=== PATIENT | female | born 1985 | race Hispanic/Latino ===

== ENCOUNTER → 2017-07-06 | Outpatient (CLI) | payer OTHER ==
--- NOTE | 2017-07-06 19:07 | Diagnostic Imaging Report ---
PROCEDURE: US OB SINGLE FETUS <14 WKS. TECHNIQUE: Multiple real-time grayscale images were obtained over the gravid uterus in various projections. INDICATION: Ultrasound for dating. FINDINGS: There is a single live intrauterine fetus. Bertsch-[place]-rump length of 5.37 cm, consistent with 12 weeks 1 day gestation. heartbeat is 183 beats per minute. No evidence of subchorionic hemorrhage. No adnexal masses are seen. Ovaries are not demonstrated due to considerable bowel gas. There is no free fluid demonstrated. IMPRESSION: A 12 weeks 1 day live intrauterine by ultrasound with sonographic EDC of 01/17/2018. Dictated by: Dictated on workstation # [id number]
== END ==
LOC: RAD 13:06
PROVIDERS: ATTEND Family Medicine
DX: Z36 Encounter for antenatal screening of mother (principal); Z3A.12 12 weeks gestation of pregnancy
CPT/HCPCS: 76801

== ENCOUNTER → 2017-10-29 | Outpatient (CLI) | payer SELFPAY | LOC: LAB 11:25 | PROVIDERS: ATTEND Family Medicine | DX: O99.810 Abnormal glucose complicating pregnancy (principal) | CPT/HCPCS: 36415; 82951; 82952 ==

== ENCOUNTER 2017-12-01 10:45 | Outpatient (RCR) | payer OTHER ==
--- NOTE | 2017-12-01 15:04 | Diagnostic Imaging Report ---
EXAMINATION: Biophysical profile. INDICATION: Diaphragmatic hernia. FINDINGS: The previous OB ultrasound exam of 09/15/2017 noted a single live fetus of approximately 22 weeks gestation +/- 1.5 weeks. There were no abnormalities identified, but there was a question of a diaphragmatic hernia. Reportedly, the patient has had follow-up ultrasound exams with a author agent elsewhere. On this exam, the fetus is again visualized. The fetus is cephalic in presentation and heart motion was noted with a rate of 123 bpm recorded. The biophysical profile score is 6/8 as breathing could not be identified. There is polyhydramnios with the amniotic fluid index estimated to be 37 (normal 8-22). IMPRESSION: 1. There is a single live fetus in cephalic presentation. 2. The biophysical profile score is below normal limits at 6/8 as breathing could not be identified. 3. There is marked polyhydramnios with amniotic fluid index of 37. 4. These results were called to Dr. Uzma Montano at the time of this dictation. CRITICAL FINDING Dictated by: Dictated on workstation # [id number]
[2017-12-08 12:30] VITALS: BP 129/60
--- NOTE | 2017-12-08 12:30 | Antepartum Progress Note ---
Antepartum Progress Antepartum Progress Date Seen by Provider: Dec 08, 2017 Time Seen by Provider: 12:10 Subjective: + Movement. Abdominal tightness. No leaking of fluid. Objective: Physical Exam General - alert and oriented, no apparent distress Abdomen - Soft, gravid, non-tender to palpation Ext - non-tender to palpation, no edema heart tones: 130, reactive NST Tocometer: irregular contractions Assessment: Gloria Samaniego is a 32 ,Gestational Age 34 2/7 wks by 12 wk US with EDC 01/17/18. complicated by history of c/s x2, abnormal quad screen with elevated risk of down's syndrome (1:59), abnormal one hour glucose tolerance test with 3 hour GTT WNL, left diaphragmatic hernia with low lung volumes (~15.5% as of 11/24/17) and herniation of stomach, spleen and intestines but liver down, dextroposition with levocardia and normal cardiac structure and function per echo, cutaneous outpouching at base of spine that does not involve neuro system, and significant polyhydramnios with MAYE as high as 71.42 ([facility], 12/05/17) currently 31 ([facility], 12/08/17). Patient being managed by Dr. Montano in conjunction with Center at [facility] in [place] with plan to deliver at [facility] by repeat C/S at 38-39 weeks due to need for extensive care after delivery. 11/24/17, [facility]: BPP 10/10 MAYE 53 S/D Ratio slightly elevated EFW 2033 grams, 65th %-tile Lung Biometry 15.54% 12/01/17, [facility] BPP 6/8 - no breathing noted MAYE 37 Vertex 12/02/17, [facility] BPP 6/10 MAYE 33 12/05/17, [facility] BPP 8/8 MAYE 71.42 Normal Cord Dopplers Normal MCA Doppler Breech Plan: BPP US today - no breathing observed, NST reactive and reassuring with good variability and accelerations and no decelerations. Category I tracing. Irregular contractions. Total BPP 8/10. Patient discharged to home, follow up with Dr. Montano next week, continue weekly testing. Vitals - Labs Labs Labs: A positive, antibody screen negative Rubella Immune HIV negative Hep B negative RPR NR Quad Screen: elevated (1:59) risk downs syndrome ROCK MARIE DO Dec 08, 2017 12:30
--- NOTE | 2017-12-08 12:33 | Diagnostic Imaging Report ---
INDICATION: Known diaphragmatic hernia. FINDINGS: Biophysical profile was performed. The overall biophysical profile score is 6/8 with 2 point deduction given for lack of breathing visualized. The fetus is cephalic. Amniotic fluid volume demonstrates MAYE of approximately 31 cm. heart motion was visualized by the technologist. IMPRESSION: Biophysical profile score 6/8. Dictated by: Dictated on workstation # [id number]
[2017-12-10] MEDS ORDERED: PREN-53 PO (16:52)
== END 2018-03-01 | disposition home or self-care (01) ==
LOC: RAD 10:45
PROVIDERS: ATTEND Family Medicine
DX: O35.8XX0 Maternal care for other (suspected) fetal abnormality and damage, not applicable or unspecified (principal); Z3A.35 35 weeks gestation of pregnancy
CPT/HCPCS: 76819

== ENCOUNTER → 2017-12-02 | Outpatient (CLI) | payer SELFPAY ==
--- NOTE | 2017-12-02 10:55 | Diagnostic Imaging Report ---
INDICATION: Diaphragmatic hernia. Comparison with 12/01/2017. FINDINGS: Single live intrauterine fetus is again demonstrated. There is polyhydramnios again noted. Amniotic fluid index is estimated to be 33. heart rate of 128 beats per minute. There is good tone and limb motion however no breathing was demonstrated. IMPRESSION: Abnormal biophysical profile again scoring 6 of potential 8 points by ultrasound. Critical finding Report was called to Diane/plain clothes police officer of Dr. Montano by [email or web address] at 10:55 am. Dictated by: Dictated on workstation # [id number]
[2017-12-02 12:00] VITALS: BP 116/66
== END ==
LOC: RAD 09:57
PROVIDERS: ATTEND Family Medicine
DX: O35.8XX1 Maternal care for other (suspected) fetal abnormality and damage, fetus 1 (principal); Z3A.00 Weeks of gestation of pregnancy not specified
CPT/HCPCS: 76819

== ENCOUNTER → 2017-12-04 | Outpatient (CLI) | payer SELFPAY ==
--- NOTE | 2017-12-04 10:06 | Diagnostic Imaging Report ---
PROCEDURE: US Gallbladder. TECHNIQUE: Multiple real-time grayscale images were obtained over the right upper quadrant in various projections. INDICATION: Right upper quadrant pain. The liver is normal in size at 16.4 cm. No discrete liver mass is identified. The gallbladder is without stones or sludge. No wall thickening or pericholecystic fluid is seen. There is no biliary duct dilatation. Extrahepatic bile duct is somewhat obscured. Pancreas is poorly visualized. There does appear to be hydronephrosis involving the right kidney. No calculi are seen. There is no ascites. IMPRESSION: 1. No evidence of cholelithiasis or acute cholecystitis. 2. Right-sided hydronephrosis. Dictated by: Dictated on workstation # [id number]
== END ==
LOC: RAD 09:32
PROVIDERS: ATTEND Family Medicine
DX: N13.30 Unspecified hydronephrosis (principal)
CPT/HCPCS: 76705

== ENCOUNTER 2017-12-10 16:24 | Outpatient (CLI) | payer SELFPAY ==
[~2017-12-10] VITALS: Ht 162.6 cm; Wt 88.5 kg
[2017-12-10 16:50] VITALS: BP 130/76
[2017-12-10] MEDS ORDERED: PREN-53 PO (16:52)
[2017-12-10 17:00] LABS: BILIRUBIN,URINE NEGATIVE (NEGATIVE); GLUCOSE, URINE (UA) NEGATIVE (NEGATIVE); KETONES,URINE NEGATIVE (NEGATIVE); LEUKOCYTE ESTERASE ,URINE 3+ (NEGATIVE); NITRITE,URINE NEGATIVE (NEGATIVE); PH,URINE 7 (5-9); PROTEIN,URINE NEGATIVE (NEGATIVE); UROBILINOGEN,URINE NORMAL (NORMAL)
[2017-12-10 17:01] LABS: BACTERIA,URINE TRACE /HPF; CLARITY,URINE CLEAR; COLOR,URINE YELLOW
[2017-12-10 17:21] VITALS: BP 121/82
[2017-12-10] MEDS ORDERED: MAGNESIUM 4 GM/100 ML IVPB 100 ML IV ONE (18:00)
[2017-12-10] MEDS ORDERED: D5 LR IV SOLUTION 1,000 ML IV SCH (18:00)
[2017-12-10] MEDS ORDERED: BETAMETHASONE ACE/NA PHOS 6 MG/ML (CELESTONE SOLUSPAN) ONE (18:00)
[2017-12-10] MEDS ORDERED: BETAMETHASONE ACE/NA PHOS 6 MG/ML (CELESTONE SOLUSPAN) IM SCH ×2 (18:00→18:05)
--- NOTE | 2017-12-10 18:03 | Clinic Account Progress/Dx ---
Clinic Account Progress/Dx DIAGNOSIS: Date Seen by Provider: Dec 10, 2017 Time Seen by Provider: 18:57 1. 32 yo at 34w4d 2. diaphragmatic hernia, polyhydramnios, mass at the base of the spine, abnormal quad screen for DS 3. Pre-term contractions 4. Previous c/s Progress Note: This is a 32yo at 34w4d w/ SARAY 01/17/[address] Montano's who present to L&D w/ c/o contractions. Pt reports contractions started last evening about 6pm and have continued since that time. Frequency has increased to every 3-4 min, contractions palpate mild-moderate. 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 Pt has had 1 previous VD and 2 prior c-sections. Pt denies any vaginal bleeding. She c/o of vaginal discharge - amniosure test was negative; she reports vaginal discharge was mucous-like and brown. Cervical exam 1cm/90%, presenting part not palpable. Contacted [facility] and spoke w/ Dr. James who accepted patient for transfer due to contractions in patient with multiple anomalies. Will give dose of Betamethasone and start Magnesium sulfate prior to transport. Will transport via fixed-wing ZULAY KEARNS DO Dec 10, 2017 18:03
[2017-12-10] MEDS ORDERED: LACTATED RINGERS 1,000 ML IV SCH (18:15)
[2017-12-10 18:20] VITALS: BP 123/82
[2017-12-10] MEDS ORDERED: MAGNESIUM SULFATE DRIP 500 ML IV SCH (18:30)
[2017-12-10 18:50] VITALS: BP 143/82
[2017-12-10] MEDS ORDERED: LACTATED RINGERS 500 ML IV SCH (23:46)
[2017-12-10] MEDS ORDERED: AMPICILLIN 2000 MG INJECTION (IM/IV) ONE (23:54)
[2017-12-10] MEDS ORDERED: NS (IVPB) 50 ML ONE (23:54)
[2017-12-11] MEDS ORDERED: NIFEdipine 10 MG CAPS (WOMEN'S SERVICES ONLY!!!) PO ONE
[2017-12-11] MEDS ORDERED: AMPICILLIN INJECTION 1,000 MG in NS (IVPB) 50 ML IV SCH ×2
[2017-12-11] MEDS ORDERED: AMPICILLIN INJECTION 2,000 MG in NS (IVPB) 50 ML IV ONE ×2
[2017-12-11] MEDS ORDERED: D5 LR IV SOLUTION 1,000 ML IV SCH
[2017-12-11] MEDS ORDERED: NIFEdipine 10 MG CAPS (WOMEN'S SERVICES ONLY!!!) PO SCH (04:00)
[2017-12-11] MEDS ORDERED: BETAMETHASONE ACE/NA PHOS 6 MG/ML (CELESTONE SOLUSPAN) IM SCH ×2 (09:00)
== END 2017-12-10 19:55 | disposition short-term general hospital (02) ==
LOC: WSo 16:24 → LDRP 16:27 → WSo 19:55
PROVIDERS: ATTEND Family Medicine
DX: O60.03 Preterm labor without delivery, third trimester (principal); O40.3XX0 Polyhydramnios, third trimester, not applicable or unspecified; O36.8930 Maternal care for other specified fetal problems, third trimester, not applicable or unspecified; O34.219 Maternal care for unspecified type scar from previous cesarean delivery; Z3A.34 34 weeks gestation of pregnancy
CPT/HCPCS: 81000; 87088

== ENCOUNTER → 2018-10-02 | Outpatient (CLI) | payer OTHER ==
[~2018-10-02] MED LIST: PREN-53 PO
--- NOTE | 2018-10-02 15:39 | Diagnostic Imaging Report ---
INDICATION: survey. TECHNIQUE: Multiple real-time grayscale images were obtained over the gravid uterus. COMPARISON: None. FINDINGS: There is a single living intrauterine in a transverse presentation. There is normal volume of amniotic fluid. Placenta is posterior. There is no previa. Heart rate is 156 beats per minute. The anatomical survey was unremarkable apart from limited visualization of the spine and kidneys. Maternal adnexa is unremarkable. The biometry correlates with gestational age of 26 weeks 1 day. IMPRESSION: 1. Single living intrauterine with sonographically estimated gestational age of 26 weeks 1 day and estimated date of confinement of January 07, 2019. 2. Somewhat limited evaluation of the spine and kidneys. Biometrical measurements are as follows: Biparietal 6.33 cm, age 25 weeks 5 days. Head circumference 24.08 cm, age 26 weeks 2 days. Abdominal circumference 21.70 cm, age 26 weeks 2 days. Femur length 4.77 cm, age 26 weeks 0 days. Sonographic estimate age: 26 weeks 1 days. Sonographic estimated date of delivery: 01/07/2018. Estimated Weight: 887 gm (+/- 130 gm). LMP percentile: 98%. heart rate: 156 beats per minute. number: 1 of 1. Dictated by: Dictated on workstation # [id number]
== END ==
LOC: RAD 12:54
PROVIDERS: ATTEND Family Medicine
DX: Z36.89 Encounter for other specified antenatal screening (principal); Z3A.26 26 weeks gestation of pregnancy; Z98.891 History of uterine scar from previous surgery
CPT/HCPCS: 76805

== ENCOUNTER 2018-12-31 09:05 | Outpatient (CLI) | payer OTHER ==
[~2018-12-31] VITALS: Ht 162.6 cm; Wt 85.8 kg
== END 2018-12-31 10:09 | disposition home or self-care (01) ==
LOC: PREOP 09:05
PROVIDERS: ATTEND Obstetrics & Gynecology
DX: Z01.818 Encounter for other preprocedural examination (principal)
CPT/HCPCS: 87081

== ENCOUNTER 2019-01-03 06:17 | Inpatient (IN) | payer OTHER ==
[~2019-01-03] VITALS: Ht 162.6 cm; Wt 85.7 kg
[~2019-01-03 06:17] MED LIST changes: +CITRIC ACID/SOB CIT (BICITRA) 30 ML UDC ONE; +DOCU-143 PO; +FAMOTIDINE 20MG/2ML IV (PEPCID) ONE; +FERR-84 PO; +METOCLOPRAMIDE INJ 10 MG/2 ML (REGLAN) ONE; +ceFAZolin 2 GM IV Premixed 50 ML ONE
[2019-01-03] MEDS ORDERED: LACTATED RINGERS 1,000 ML IV SCH (06:26)
[2019-01-03] MEDS ORDERED: METOCLOPRAMIDE INJ 10 MG/2 ML (REGLAN) IV ONE (06:30)
[2019-01-03] MEDS ORDERED: ceFAZolin 2 GM IV Premixed 50 ML IV ONE (06:30)
[2019-01-03] MEDS ORDERED: FAMOTIDINE 20MG/2ML IV (PEPCID) IV ONE (06:30)
[2019-01-03] MEDS ORDERED: CITRIC ACID/SOB CIT (BICITRA) 30 ML UDC PO ONE (06:30)
[2019-01-03] MEDS: LACTATED RINGERS 1,000 ML IV SCH ×2 (06:39→07:17)
[2019-01-03 06:46] LABS: BASOPHILS % (AUTO) 0 % (0-10); EOSINOPHILS # (AUTO) 0.1 10^3/uL (0.0-0.3); EOSINOPHILS % (AUTO) 1 % (0-10); HEMATOCRIT 36 % (35-52); HEMOGLOBIN 12.2 G/DL (11.5-16.0); LYMPHOCYTES # (AUTO) 1.9 X 10^3 (1.0-4.0); LYMPHOCYTES % (AUTO) 16 % (12-44); MEAN CORPUSCULAR HEMOGLOBIN 33 PG (25-34); MEAN CORPUSCULAR HGB CONC 34 G/DL (32-36); MEAN CORPUSCULAR VOLUME 99 FL (80-99); MEAN PLATELET VOLUME 11.1 FL (7.4-10.4); MONOCYTES # (AUTO) 0.5 X 10^3 (0.0-1.0); MONOCYTES % (AUTO) 4 % (0-12); NEUTROPHILS # (AUTO) 9.4 X 10^3 (1.8-7.8); NEUTROPHILS % (AUTO) 79 % (42-75); PLATELET COUNT 175 10^3/uL (130-400); RED CELL DISTRIBUTION WIDTH 15.4 % (10.0-14.5)
[2019-01-03] MEDS ORDERED: fentaNYL INJECTION 100 MCG/2 ML AMP ONE (06:46)
[2019-01-03 06:59] VITALS: BP 111/70
--- NOTE | 2019-01-03 07:15 | NUR ---
THIS RN ASSUMES CARE FROM CONE FORMER RN. REPORT RECEIVED FROM FREDDY RN. THIS RN INTRODUCES SELF TO PT AND FAMILY. SLOT TAG INSERTER WALKS PT BACK TO OR FOR REPEAT CS BY DR ACE.
--- NOTE | 2019-01-03 07:16 | History & Physical-OB ---
OB - Chief Complaint & HPI Date/Time Date of Admission: Date of Admission: Jan 03, 2019 at 06:17 Date seen by a Provider: Jan 03, 2019 Time Seen by a Provider: 07:10 Chief Complaint/History OB-Reason for Admission/Chief: Section Hx : 6 Hx Para: 4 Expected Date of Delivery: Jan 10, 2019 Indication for : desires repeat Admission Nurse Assessment Rev: Yes History of Labs Apos Antibody neg Rubella unk RPR NR HIV NR HBsAg NR Allergies and Home Medications Allergies Coded Allergies: No Known Drug Allergies (Unverified , 12/10/17) Home Medications Docusate Sodium 100 Mg Capsule, 100 MG PO DAILY, (Reported) Ferrous Sulfate 325 Mg Tablet, 325 MG PO DAILY, (Reported) Uck156/Iron Fumarate/FA/Dss 1 Each Tablet, 1 EACH PO DAILY, (Reported) Patient Home Medication List Home Medication List Reviewed: Yes OB - History Hx of Present Care: Yes Ultrasounds: Normal mid trimester US Obstetrical Complications: None Medical Complications: None Delivery History Adverse Rxn to Tranfusion: No (HAS HAD BLOOD WITH NO REACTION) Patient Past Medical History n/a Social History/Family History HIV/AIDS: No Sexually Transmitted Disease: No Alcohol Use: Denies Use Recreational Drug Use: No Immunizations Date of Influenza Vaccine: Aug 20, 2018 OB - Admission Exam Physical Exam Vitals: Vital Signs 01/03/19 06:59 Temp 98.8 Pulse 103 Resp 18 B/P (MAP) 111/70 (84) HEENT: NCAT Heart: Rhythm Normal Lungs: Clear Abdomen: Gravid Extremities: Normal Reflexes: Normal Heart Rate: 130's Decelerations: No Decelerations Short Term Variability: Present Assisted Variability: Average (6-25) Contractions on Admission: >10 Minutes Apart Labs Laboratory Tests Test 01/03/19 06:25 Range/Units White Blood Count 12.0 H 4.3-11.0 10^3/uL Red Blood Count 3.65 L 4.35-5.85 10^6/uL Hemoglobin 12.2 11.5-16.0 G/DL Hematocrit 36 35-52 % Mean Corpuscular Volume 99 80-99 FL Mean Corpuscular Hemoglobin 33 25-34 PG Mean Corpuscular Hemoglobin Concent 34 32-36 G/DL Red Cell Distribution Width 15.4 H 10.0-14.5 % Platelet Count 175 130-400 10^3/uL Mean Platelet Volume 11.1 H 7.4-10.4 FL Neutrophils (%) (Auto) 79 H 42-75 % Lymphocytes (%) (Auto) 16 12-44 % Monocytes (%) (Auto) 4 0-12 % Eosinophils (%) (Auto) 1 0-10 % Basophils (%) (Auto) 0 0-10 % Neutrophils # (Auto) 9.4 H 1.8-7.8 X 10^3 Lymphocytes # (Auto) 1.9 1.0-4.0 X 10^3 Monocytes # (Auto) 0.5 0.0-1.0 X 10^3 Eosinophils # (Auto) 0.1 0.0-0.3 10^3/uL Basophils # (Auto) 0.0 0.0-0.1 10^3/uL OB - Assessment/Plan/Diagnosis Assessment Assessment: section Admission Dx 33 yo @ 39 weeks Previous x 3 AMA Admission Status: Inpatient Order (span 2 midnights) Reason for Inpatient Admission: Repeat at term Plan Plan: Section GLENN ACE DO Jan 03, 2019 07:16
[2019-01-03] MEDS ORDERED: OXYTOCIN/NORMAL SALINE 500 ML IV SCH (07:18)
--- NOTE | 2019-01-03 07:22 | Discharge Inst-Women's Service ---
Discharge Inst-Women's Serv Depart Medication/Instructions New, Converted or Re-Newed RX: RX on Chart Final Diagnosis POD 2 RLTCS Consults/Follow Up Additional Follow Up: Yes Orders/Referrals Dr. Franco in 7-10 days, Dr. Montano in 6 weeks Activity Activity: Activity as Tolerated Driving Instructions: No Driving for 1 Week NO SMOKING: NO SMOKING Nothing Inside Vagina: No Douching, No [place], No Tampons Diet Discharge Diet: No Restrictions Symptoms to Report to : Bleeding Excessive, Pain Increased, Fever Over 101 Degrees F, Vaginal Bleeding Increase, Questions/Concerns For Any Problems or Questions: Contact Your Physician Skin/Wound Care Infection Signs and Symptoms: Increased Redness, Foul Odor of Wound, Increased Drainage, Skin Itchy or Has a Rash, Increased Swelling, Temperature Above 101 F Operative Area Clean and Dry: Keep Incision Clean/Dry Stitches/[place]/Dermabond: Dermabond, Care of Stitches Bathing Instructions: GLENN Hagen DO Jan 03, 2019 07:22
[2019-01-03] MEDS ORDERED: DOCU100C37 PO (07:24)
[2019-01-03] MEDS ORDERED: ACHD5005 PO (07:24)
[2019-01-03] MEDS ORDERED: IBUP-844 PO (07:24)
[2019-01-03] MEDS ORDERED: ONDANSETRON 4 MG/2 ML (SDV) Z0FRAN IVP PRN ×2 (07:30→09:30)
[2019-01-03] MEDS ORDERED: MEASLES,MUMPS,RUBELLA 1 EA INJ SC SCH (07:30)
[2019-01-03] MEDS ORDERED: TETANUS,DIPTH,PERTUSS P/F (BOOSTRIX) 0.5 ML VIAL IM SCH (07:30)
[2019-01-03] MEDS ORDERED: HYDROmorphone 2 MG/ML VIAL (DILAUDID) IV PRN (07:30)
[2019-01-03] MEDS ORDERED: OXYTOCIN/NORMAL SALINE 500 ML IV ONE (07:36)
[2019-01-03] MEDS ORDERED: LIDOCAINE PF 2% 5 ML (XYLOCAINE) VIAL ONE (07:36)
[2019-01-03] MEDS ORDERED: DEXAMETHASONE 10 MG/ML (DECADRON) 1 ML VIAL ONE (07:36)
[2019-01-03] MEDS ORDERED: KETOROLAC 30 MG/ML VIAL ONE (07:36)
[2019-01-03] MEDS ORDERED: ONDANSETRON 4 MG/2 ML (SDV) Z0FRAN ONE (07:36)
[2019-01-03] MEDS ORDERED: BUPIVACAINE SPINAL 0.75% (SENSORCAINE) 2 ML AMP ONE (08:01)
[2019-01-03] MEDS ORDERED: ROPIVACAINE 5MG/ML 30ML VIAL ONE (08:17)
[2019-01-03] MEDS: KETOROLAC 30 MG/ML VIAL IVP SCH ×3 (08:17→20:21)
--- NOTE | 2019-01-03 09:06 | OPERATIVE REPORT ---
DATE OF SERVICE: PREOPERATIVE DIAGNOSES: 1. A 33-year-old G6, P4 at 39 weeks gestation. 2. Previous x3. 3. Advanced maternal age. POSTOPERATIVE DIAGNOSES: 1. A 33-year-old G6, P4 at 39 weeks gestation. 2. Previous x3. 3. Advanced maternal age. PROCEDURE: Repeat low transverse section. SURGEON: GLENN ACE DO ANESTHESIA: Spinal. ESTIMATED BLOOD LOSS: 400 mL. URINE OUTPUT: 150 mL clear at the end of the procedure. FLUIDS: 1000 mL lactated Ringer solution. FINDINGS: A live female infant weighing 8 pounds 15 ounces, Apgars of 8 and 9. Grossly normal appearing uterus, bilateral fallopian tubes and ovaries. INDICATIONS FOR PROCEDURE: This 33-year-old female was a consultation to me from [facility] and Dr. Montano for repeat . She started care with [facility] and had no complications of care outside of advanced maternal age. In a preoperative consultation we discussed proceeding with repeat . She was well aware of the risks that she had had four prior cesareans in the past. Once again on the consent risks were reviewed including risk of bleeding, infection, damage to surrounding structures including, but not limited to bowel, bladder, ureter, kidneys, possible postoperative complications, recovery timeframe, possible need for blood transfusion. After everything was discussed with the patient in detail, consent was obtained in the preoperative area and the patient taken to the operating room. OPERATIVE REPORT IN DETAIL: Once in the operating room spinal anesthesia was found to be adequate, placed in supine position with leftward tilt, prepped and draped in normal sterile fashion. A timeout was performed and anesthesia was tested. I then make a Pfannenstiel skin incision through the previously existing scar by making an elliptical incision around the previously existing keloid. Once this was done I am able to excise the old keloid scar. I then took my incision down to the underlying fascia using Bovie cautery. Fascial incision extended laterally using Bovie cautery. Superior aspect of the fascial incision was then grasped with Easton clamps, tented up and dissected off the underlying rectus muscle. Inferior aspect of the fascial incision was then grasped with Easton clamps, tented up and dissected off the underlying rectus muscles. The rectus muscle was then dissected down the midline using Bennett scissors, which exposed the peritoneum, which entered bluntly and extended using blunt traction. I then placed an Paul ring retractor in peritoneal incision, which offered excellent lateral femoral retraction. I then identified the lower uterine segment, which was found to be thinned out. I made a low transverse incision through the lower uterine segment using the scalpel and membranes were immediately encountered. Clear fluid was noted. I extended the uterine incision laterally and superiorly using bandage scissors. The was found in the vertex presentation, occiput posterior. With gentle fundal pressure, 's head elevated up to the incision where it was delivered through the incision, the nares and oropharynx were bulb suctioned. Anterior and posterior shoulder was delivered. Infant was then brought out to the operative field. The cord was clamped and cut and infant was handed off to Dr. Montano who was present for delivery. Cord blood collected, 3-vessel cord was intact. Placenta then was delivered spontaneously thereafter. IV Pitocin was initiated to facilitate uterine contraction. Uterine fundus became firmer with bimanual massage. Uterus was then exteriorized and cleared of all endometrial clots and debris. I then proceeded with closing the uterine incision using 0 Vicryl suture in a running locked fashion. Second layer of imbricating 0 Monocryl was placed. Excellent hemostasis was noted after doing this. I placed the uterus back in the pelvis and copiously irrigated the pelvis using normal saline. After this, there was no active bleeding noted from any of my dissection planes. I placed Interceed antiadhesive over my low transverse incision and proceeded with closing the peritoneum using 3-0 Vicryl suture in a running fashion. The rectus muscle was reapproximated using 3-0 Vicryl suture in interrupted fashion. The fascia was reapproximated using 0 Vicryl suture in running fashion. Subcutaneous tissue was reapproximated using 3-0 plain interrupted subcutaneous stitch and skin reapproximated using 4-0 Monocryl running subcuticular. Dermabond was applied to incision and sterile dressing with adhesive white tape. The patient tolerated the procedure well and was taken to recovery area in stable condition. Lap and sponge counts were correct at the end of the procedure. Instrument count was correct as well. Two grams of Ancef were given preoperatively for infection prophylaxis. Job ID: [id number] DocumentID: [id number] Dictated Date: 01/03/2019 08:16:46 Licensed Practical Vocational Nurse Date: 01/03/2019 09:05:35 Dictated By: GLENN ACE DO
[2019-01-03] MEDS ORDERED: NALOXONE 0.4 MG/ML 1 ML (NARCAN) VIAL IV PRN ×2 (09:30)
[2019-01-03] MEDS ORDERED: METOCLOPRAMIDE INJ 10 MG/2 ML (REGLAN) IV PRN (09:30)
[2019-01-03] MEDS ORDERED: morphine INJ 10 MG/ML 1ML (SYR OR VIAL) IVP ONE (09:30)
[2019-01-03] MEDS ORDERED: ONDANSETRON 4 MG/2 ML (SDV) Z0FRAN IV PRN (09:30)
[2019-01-03] MEDS ORDERED: MEPERIDINE (DEMEROL) INJ 50 MG/ML IVP ONE (09:30)
[2019-01-03] MEDS ORDERED: diphenhydrAMINE 50 MG/ML INJ (BENADRYL) IV PRN (09:30)
--- NOTE | 2019-01-03 09:45 | NUR ---
PT OUT OF RECOVERY AND ARRIVES TO PP ROOM 307 ON BED/CART BY THIS RN. FAMILY AT BEDSIDE. PT DENIES PAIN OR NEEDS AT THIS TIME. FUNDUS FIRM, MIDLINE, 2 BELOW UMBILICUS, LIGHT BLEEDING. CALL LIGHT WITHIN REACH.
[2019-01-03 10:15] VITALS: BP 124/74
--- NOTE | 2019-01-03 11:05 | NUR ---
THIS RN AT BEDSIDE. FUNDUS FIRM, MIDLINE, 2 BELOW UMBILICUS, LIGHT BLEEDING, SMALL DIME SIZED CLOT EXPELLED. PAD AND LINEN CHANGE, PERICARE BY THIS RN. ABDOMINAL BINDER APPLIED AT THIS TIME. PT CO PAIN 01/20. DENIES NEED FOR PAIN MEDICINE AT THIS TIME. PT AWARE TO NOTIFY RN WITH CALL LIGHT WHEN WANTING PAIN MEDICINE. CALL LIGHT BY PT SIDE WITHIN REACH. FAMILY AT BEDSIDE. DENIES NEEDS.
[2019-01-03 12:00] VITALS: BP 108/67
[2019-01-03] MEDS: HYDROcodone/APAP 5 MG/325 MG (LORTAB) TAB PO PRN ×2 (12:37→17:33)
[2019-01-03] MEDS ORDERED: CATHETER FLUSH 10 ML SYR IV SCH (14:00)
--- NOTE | 2019-01-03 14:45 | NUR ---
PERICARE AND LINEN CHANGE BY THIS RN. PT NEEDS TO VOID. PT UNABLE TO LIFT LEFT LEG YET. STATE LEFT LEG STILL FEEL NUMB. THIS RN HELPS PT USE A BEDPAN. DISCUSS PLAN OF CARE WITH PT AND FAMILY. QUESTIONS ANSWERED. CALL LIGHT WITHIN REACH. FAMILY REMAINS AT BEDSIDE.
[2019-01-03 16:00] VITALS: BP 108/67
--- NOTE | 2019-01-03 16:15 | NUR ---
THIS RN AT BEDSIDE FOR VS AND EVALUATION OF LEFT LEG. PT STILL UNABLE TO FULLY LIFT LEFT LEG AFTER CS THIS AM. THIS RN WILL CALL ANESTHESIA PROVIDER BASEBALL WINDER TO REPORT CONCERN.
--- NOTE | 2019-01-03 16:40 | NUR ---
THIS RN CALLS ELYSSA BENITO BOX OFFICE CLERK FOR ANESTHESIA. NO ANSER. VOICEMAIL LEFT TO RETURN CALL.
--- NOTE | 2019-01-03 16:52 | NUR ---
THIS RN AT BEDSIDE TO REEVALUATE PT LEFT LEG. PT NOW ABLE TO BEND AND LIFT LEFT LEG OFF OF BED AT THIS TIME.
--- NOTE | 2019-01-03 17:20 | NUR ---
THIS RN AT BEDSIDE. THIS RN ASSISTS PT UP TO BATHROOM. PT CO LEFT HIP PAIN. PT HAS HAD SURGERY ON LEFT HIP IN THE PAST. RN WILL ADMIN PAIN MEDICINE IN ATTEMPT TO RELIEVE PAIN.
[2019-01-03] MEDS: DOCUSATE SODIUM 100 MG (COLACE) CAP PO SCH (20:20)
[2019-01-03 20:21] VITALS: BP 101/66
[2019-01-04 00:50] VITALS: BP 108/47
[2019-01-04] MEDS ORDERED: IBUPROFEN 600 MG (MOTRIN) TAB PO ONE (03:21)
[2019-01-04] MEDS: IBUPROFEN 600 MG (MOTRIN) TAB PO SCH ×4 (03:27→22:19)
[2019-01-04 03:30] VITALS: BP 105/98
--- NOTE | 2019-01-04 03:30 | NUR ---
This rn in room to take vs. Automatic vital machine having difficulty reading bp. Repeated 3x with reading on 4th time. Pulse reading 40. Palpated radial pulse to confirm higher than 40. Pulse 68 and confirmed with sp02 probe. Will return to room with stethascope.
[2019-01-04] MEDS: HYDROcodone/APAP 5 MG/325 MG (LORTAB) TAB PO PRN ×2 (03:37→12:40)
--- NOTE | 2019-01-04 04:00 | NUR ---
Heart murmur detected on auscultation at apical pulse. Heart rate regular. Pt denies needs at this time. will monitor closely.
[2019-01-04 07:11] LABS: BASOPHILS % (AUTO) 0 % (0-10); EOSINOPHILS % (AUTO) 0 % (0-10); HEMATOCRIT 31 % (35-52); HEMOGLOBIN 10.3 G/DL (11.5-16.0); LYMPHOCYTES # (AUTO) 2.4 X 10^3 (1.0-4.0); LYMPHOCYTES % (AUTO) 17 % (12-44); MEAN CORPUSCULAR HEMOGLOBIN 33 PG (25-34); MEAN CORPUSCULAR HGB CONC 33 G/DL (32-36); MEAN CORPUSCULAR VOLUME 99 FL (80-99); MONOCYTES % (AUTO) 7 % (0-12); NEUTROPHILS # (AUTO) 10.5 X 10^3 (1.8-7.8); NEUTROPHILS % (AUTO) 76 % (42-75); PLATELET COUNT 163 10^3/uL (130-400); RED CELL DISTRIBUTION WIDTH 14.9 % (10.0-14.5); WHITE BLOOD COUNT 13.9 10^3/uL (4.3-11.0)
[2019-01-04 07:20] VITALS: BP 100/69
--- NOTE | 2019-01-04 07:20 | NUR ---
Report of cardiac findings reported to Dr. Franco. No new orders received. Report given to Navya HUMPHREY.
--- NOTE | 2019-01-04 08:15 | NUR ---
Dr. Franco here to see pt, no new orders rec'd.
--- NOTE | 2019-01-04 08:39 | Anesthesia-Regional Post-Op ---
Regional Patient Condition Mental Status: Alert, Oriented x3 Circulation: Same as Pre-Op Headache: Absent Sensation: Full Recovery Motor Block: Absent Post Op Complications Complications None Follow Up Care/Instructions Patient Instructions None needed. Anesthesia/Patient Condition Patient is doing well, no complaints, stable vital signs, no apparent adverse anesthesia problems. No complications reported per nursing. YENNY MÉNDEZ CRNA Jan 04, 2019 08:39
--- NOTE | 2019-01-04 09:05 | Postpartum Progress Note ---
Note Note Day # 1 Subjective: Patient is without complaints. Ambulating, voiding. Tolerating a regular diet without nausea or vomiting. Normal lochia. Pain is well controlled with oral pain medications. Objective: Vital Sign - Last 24 Hours 01/03/19 01/03/19 01/03/19 01/03/19 10:15 11:13 12:00 16:00 Temp 98.2 98.3 97.5 Pulse 84 83 78 Resp 18 18 18 B/P (MAP) 124/74 (91) 108/67 (81) 108/67 (81) Pulse Ox 99 97 97 O2 Delivery Room Air Room Air Room Air Room Air 01/03/19 01/04/19 01/04/19 01/04/19 20:21 00:50 03:30 04:47 Temp 97.6 98.9 98.9 Pulse 64 89 68 Resp 18 18 18 B/P (MAP) 101/66 (78) 108/47 (67) 105/98 (100) Pulse Ox 98 98 O2 Delivery Room Air Room Air Room Air Room Air Intake and Output 01/03/19 01/03/19 01/04/19 15:00 23:00 07:00 Intake Total 1450 ml 1400 ml Output Total 900 ml 1400 ml Balance 550 ml 0 ml Physical Exam: General - Alert and oriented, no apparent distress Abdomen - Soft, appropriately tender to palpation, non-distended, fundus firm at umbilicus Extremities - no edema, negative Spring's bilaterally Incision- mild ecchymoses around incision, c/d/i Assessment: POD 1 RLTCS Acute blood loss anemia Plan: Routine care. Encourage breast feeding. Encourage ambulation. Ferrous sulfate supplementation. Plan for discharge tomorrow Vitals - Labs Vital Signs - I&O Vital Signs Date Time Temp Pulse Resp B/P (MAP) Pulse Ox O2 Delivery O2 Flow Rate FiO2 01/04/19 04:47 Room Air 01/04/19 03:30 98.9 68 18 105/98 (100) 98 Room Air 01/04/19 00:50 98.9 89 18 108/47 (67) 98 Room Air 01/03/19 20:21 97.6 64 18 101/66 (78) Room Air 01/03/19 16:00 97.5 78 18 108/67 (81) 97 Room Air 01/03/19 12:00 98.3 83 18 108/67 (81) 97 Room Air 01/03/19 11:13 Room Air 01/03/19 10:15 98.2 84 18 124/74 (91) 99 Room Air I & O 01/04/19 07:00 Intake Total 2850 ml Output Total 2300 ml Balance 550 ml Labs Laboratory Tests 01/04/19 07:00: White Blood Count 13.9H, Red Blood Count 3.11L, Hemoglobin 10.3L, Hematocrit 31L , Mean Corpuscular Volume 99, Mean Corpuscular Hemoglobin 33, Mean Corpuscular Hemoglobin Concent 33, Red Cell Distribution Width 14.9H, Platelet Count 163, Mean Platelet Volume 11.0H, Neutrophils (%) (Auto) 76H, Lymphocytes (%) (Auto) 17, Monocytes (%) (Auto) 7, Eosinophils (%) (Auto) 0, Basophils (%) (Auto) 0, Neutrophils # (Auto) 10.5H, Lymphocytes # (Auto) 2.4, Monocytes # (Auto) 1.0, Eosinophils # (Auto) 0.0, Basophils # (Auto) 0.0 GLENN ACE DO Jan 04, 2019 9:05 am
[2019-01-04] MEDS: DOCUSATE SODIUM 100 MG (COLACE) CAP PO SCH ×2 (09:17→20:38)
--- NOTE | 2019-01-04 12:30 | NUR ---
Pt reports incision bleeding. Incision inspected, small amt bright red blood noted on L side of incision, no current active bleeding. Suspect abd. binder rubbed as it is too high on abd. Incision covered with ABD pad and abd binder adjusted. Pt educated on binder placement. Will continue to monitor.
[2019-01-04 12:41] VITALS: BP 97/60
--- NOTE | 2019-01-04 14:20 | NUR ---
Incision checked. Very scant amount of bright red blood noted on ABD pad, no active bleeding noted. Will continue to monitor.
[2019-01-04 16:00] VITALS: BP 105/68
--- NOTE | 2019-01-04 16:10 | NUR ---
Motrin given. Shower set up for pt, fresh gown and myrna supplies provided.
--- NOTE | 2019-01-04 21:00 | NUR ---
pt resting in bed. assessment completed. family at bedside. no concerns voiced at this time.
[2019-01-04 21:58] VITALS: BP 122/70
[2019-01-05] MEDS: IBUPROFEN 600 MG (MOTRIN) TAB PO SCH ×2 (04:16→09:26)
[2019-01-05 04:17] VITALS: BP 99/64
--- NOTE | 2019-01-05 07:14 | Postpartum Progress Note ---
Note Note Day # 2 Subjective: Patient is without complaints. Ambulating, voiding. Tolerating a regular diet without nausea or vomiting. Normal lochia. Pain is well controlled with oral pain medications. Objective: Vital Sign - Last 24 Hours 01/04/19 01/04/19 01/04/19 01/04/19 07:20 12:41 16:00 21:58 Temp 98.1 98.8 98.7 97.3 Pulse 69 70 70 72 Resp 18 18 18 18 B/P (MAP) 100/69 (79) 97/60 (72) 105/68 (80) 122/70 (87) Pulse Ox 96 98 98 98 O2 Delivery Room Air Room Air Room Air Room Air 01/05/19 04:17 Temp 97.4 Pulse 84 Resp 18 B/P (MAP) 99/64 (76) Pulse Ox 98 O2 Delivery Room Air Physical Exam: General - Alert and oriented, no apparent distress Abdomen - Soft, appropriately tender to palpation, non-distended, fundus firm at umbilicus Extremities - no edema, negative Spring's bilaterally Incision: c/d/i Assessment: POD 2 RLTCS Acute blood loss anemia Plan: Routine care. Encourage breast feeding. Encourage ambulation. Ferrous sulfate supplementation. Plan for discharge today Vitals - Labs Vital Signs - I&O Vital Signs Date Time Temp Pulse Resp B/P (MAP) Pulse Ox O2 Delivery O2 Flow Rate FiO2 01/05/19 04:17 97.4 84 18 99/64 (76) 98 Room Air 01/04/19 21:58 97.3 72 18 122/70 (87) 98 Room Air 01/04/19 16:00 98.7 70 18 105/68 (80) 98 Room Air 01/04/19 12:41 98.8 70 18 97/60 (72) 98 Room Air 01/04/19 07:20 98.1 69 18 100/69 (79) 96 Room Air GLENN ACE DO Jan 05, 2019 07:14
[2019-01-05 09:24] VITALS: BP 105/58
--- NOTE | 2019-01-05 09:24 | NUR ---
AM shift assessment completed and vital signs obtained, see interventions. Family in room interpreting. Plan of care reviewed with patient. Patient verbalizes understanding and questions answered. Scheduled Colace and Motrin PO given. Lortab 2 PO given for patient's c/o pain. TDAP administered, see EMAR. VIS sheet provided to patient.
[2019-01-05] MEDS: DOCUSATE SODIUM 100 MG (COLACE) CAP PO SCH (09:26)
[2019-01-05] MEDS: HYDROcodone/APAP 5 MG/325 MG (LORTAB) TAB PO PRN (09:26)
--- NOTE | 2019-01-05 13:27 | NUR ---
Discharge instructions reviewed with patient both written and verbally utilizing telephone cash applications associate. Patient verbalizes understanding and questions answered. Written prescriptions given to patient.
--- NOTE | 2019-01-05 14:13 | NUR ---
Patient discharged at this time via wheelchair and accompanied down to awaiting private vehicle by this RN. No signs or symptoms of distress noted.
== END 2019-01-05 14:13 | disposition home or self-care (01) | DRG 787 ==
LOC: LDRP 06:17
PROVIDERS: ADMIT Obstetrics & Gynecology; ATTEND Obstetrics & Gynecology
PROC: 10D00Z1 Extraction of Products of Conception, Low, Open Approach (ICD-10-PCS; principal; 2019-01-03 07:17)
DX: O34.211 Maternal care for low transverse scar from previous cesarean delivery (principal); O90.81 Anemia of the puerperium; D62 Acute posthemorrhagic anemia; Z3A.39 39 weeks gestation of pregnancy; Z37.0 Single live birth
CPT/HCPCS: 36415; 85025; 86850; 86900; 86901; 90715; 94664

== ENCOUNTER 2020-01-20 22:51 | Emergency (ER) | payer OTHER ==
[~2020-01-20] VITALS: Ht 167 cm; Wt 81.0 kg
[~2020-01-20 22:51] MED LIST changes: +ACHD5005 PO; -CITRIC ACID/SOB CIT (BICITRA) 30 ML UDC ONE; +DOCU100C37 PO; -FAMOTIDINE 20MG/2ML IV (PEPCID) ONE; +IBUP-844 PO; -METOCLOPRAMIDE INJ 10 MG/2 ML (REGLAN) ONE; -ceFAZolin 2 GM IV Premixed 50 ML ONE
[2020-01-20] MEDS ORDERED: KETOROLAC 30 MG/ML VIAL IVP ONE (23:45)
[2020-01-20] MEDS ORDERED: ORPHENADRINE 60 MG/2 ML (NORFLEX) AMP IV ONE (23:45)
[2020-01-20 23:54] LABS: BASOPHILS % (AUTO) 1 % (0-10); EOSINOPHILS # (AUTO) 0.1 10^3/uL (0.0-0.3); EOSINOPHILS % (AUTO) 1 % (0-10); HEMATOCRIT 34 % (35-52); HEMOGLOBIN 11.4 G/DL (11.5-16.0); LYMPHOCYTES # (AUTO) 2.7 X 10^3 (1.0-4.0); LYMPHOCYTES % (AUTO) 31 % (12-44); MEAN CORPUSCULAR HEMOGLOBIN 32 PG (25-34); MEAN CORPUSCULAR HGB CONC 34 G/DL (32-36); MEAN CORPUSCULAR VOLUME 94 FL (80-99); MEAN PLATELET VOLUME 10.3 FL (7.4-10.4); MONOCYTES # (AUTO) 0.5 X 10^3 (0.0-1.0); MONOCYTES % (AUTO) 5 % (0-12); NEUTROPHILS # (AUTO) 5.2 X 10^3 (1.8-7.8); NEUTROPHILS % (AUTO) 61 % (42-75); PLATELET COUNT 166 10^3/uL (130-400); RED CELL DISTRIBUTION WIDTH 13.9 % (10.0-14.5); WHITE BLOOD COUNT 8.5 10^3/uL (4.3-11.0)
[2020-01-21 00:17] LABS: ALANINE AMINOTRANSFERASE 20 U/L (0-55); ALBUMIN 4.4 GM/DL (3.2-4.5); ALKALINE PHOSPHATASE 62 U/L (40-136); BILIRUBIN,TOTAL 0.4 MG/DL (0.1-1.0); BUN/CREATININE RATIO 30; CALCIUM 9.2 MG/DL (8.5-10.1); CARBON DIOXIDE 22 MMOL/L (21-32); CHLORIDE 108 MMOL/L (98-107); CREATININE SERUM 0.69 MG/DL (0.60-1.30); GFR ESTIMATED > 60; GLUCOSE 141 MG/DL (70-105); POTASSIUM 3.8 MMOL/L (3.6-5.0); SODIUM 140 MMOL/L (135-145); TOTAL PROTEIN 7.4 GM/DL (6.4-8.2)
[2020-01-21 00:37] LABS: TSH (THYROID ANALYZER) 1.04 UIU/ML (0.35-4.94)
[2020-01-21] MEDS ORDERED: PEN G BENZ (BICILLIN LA) 1.2 M UN/2 ML SYR IM ONE (01:45)
[2020-01-21] MEDS ORDERED: TERB250T16 PO (01:48)
[2020-01-21] MEDS ORDERED: CYCL10TA9 PO (01:48)
--- NOTE | 2020-01-21 01:49 | ED Headache ---
General Chief Complaint: Head/Cervical Problems Stated Complaint: HEADACHE Nursing Triage Note: Pt ambulates to RM 6 with c/o headache x 1 wk that started at top of head and now to base of skull. Pt daughter at bedside translating for pt and states se also has quarter sized spots that have balded on right side behind ear and back of head. Pt describes headache as "pressure and feels like someone punched my head" Nursing Sepsis Screen: No Definite Risk Source: patient, family, aix system administrator Exam Limitations: no limitations, language barrier History of Present Illness Date Seen by Provider: Jan 20, 2020 Time Seen by Provider: 23:17 Initial Comments This 34-year-old [place]-speaking woman presents to the emergency room via private vehicle accompanied by her bilingual daughter with complaints of intense headache and neck pain escalating over the past week as well as patches of alopecia that have developed recently. She has been taking Tylenol and ibuprofen without sufficient relief. She notes working at [employer] where she wears a helmet or hardhat during the workday. She reports her left eye feels like it's "jumping". She is afebrile. She denies any other neurologic symptoms, nausea, vomiting, or vision changes. Last menstrual period was one year ago because she is breast-feeding. Patient has 3 main patches of alopecia. She denies any picking or pulling of the hair. Allergies and Home Medications Allergies Coded Allergies: No Known Drug Allergies (Unverified , 12/10/17) Home Medications Cyclobenzaprine HCl 10 Mg Tablet, 10 MG PO Q8H PRN for SPASMS Prescribed by: MARK BELLE on 01/21/20 0148 Docusate Sodium 100 Mg Capsule, 100 MG PO BID PRN for CONSTIPATION-1ST LINE Prescribed by: GLENN ACE on 01/03/19723 Ferrous Sulfate 325 Mg Tablet, 325 MG PO DAILY, (Reported) Hydrocodone Bit/Acetaminophen 1 Tab Tab, 1-2 TAB PO Q4H PRN for PAIN-MODERATE Prescribed by: GLENN ACE on 01/03/19723 Ibuprofen 600 Mg Tablet, 600 MG PO Q6H Prescribed by: GLENN ACE on 01/03/19723 Epr533/Iron Fumarate/FA/Dss 1 Each Tablet, 1 EACH PO DAILY, (Reported) Terbinafine HCl 250 Mg Tablet, 250 MG PO DAILY Prescribed by: MARK BELLE on 01/21/20 0148 Patient Home Medication List Home Medication List Reviewed: Yes Review of Systems Review of Systems Constitutional: no symptoms reported Eyes: See HPI Ears, Nose, Mouth, Throat: no symptoms reported Respiratory: no symptoms reported Cardiovascular: no symptoms reported Gastrointestinal: no symptoms reported Genitourinary: no symptoms reported : No Musculoskeletal: see HPI Skin: see HPI Psychiatric/Neurological: See HPI Past Pvczysi-Idikra-Ldnxjy Hx Past Med/Social Hx: Reviewed Nursing Past Med/Soc Hx Patient Social History Alcohol Use: Denies Use Recreational Drug Use: No Smoking Status: Never a Smoker Recent Foreign Travel: No Contact w/Someone Who Travel: No Recent Infectious Disease Expo: No Recent Hopitalizations: No Physical Abuse: No Sexual Abuse: No Mistreated: No Fear: No Immunizations Up To Date Tetanus Booster (TDap): Unknown Date of Influenza Vaccine: Aug 20, 2018 Seasonal Allergies Seasonal Allergies: No Past Medical History Surgeries: Yes (HIP) Section, Orthopedic Respiratory: No Cardiac: No Neurological: No : No Sexually Transmitted Disease: No HIV/AIDS: No Genitourinary: No Gastrointestinal: No Musculoskeletal: No Endocrine: No HEENT: No Loss of Vision: Denies Hearing Impairment: Denies Cancer: No Psychosocial: No Integumentary: No Blood Disorders: No Adverse Reaction/Blood Tranf: No (HAS HAD BLOOD WITH NO REACTION) Family Medical History Patient reports no known family medical history. Physical Exam Vital Signs Vital Signs - First Documented 01/20/20 23:04 Temp 36.6 Pulse 66 Resp 18 B/P (MAP) 124/56 (78) Pulse Ox 99 O2 Delivery Room Air Capillary Refill : Less Than 3 Seconds Height, Weight, BMI Height: 5'4.00" Weight: 189lbs. 0.0oz. 85.247601tr; 29.00 BMI Method: General Appearance: WD/WN, no apparent distress HEENT: PERRL/EOMI, normal ENT inspection, TMs normal, pharynx normal Neck: normal inspection, other (posterior neck muscles are very tense and tender) Cardiovascular: regular rate, rhythm, no edema, no murmur Respiratory: lungs clear, normal breath sounds, no respiratory distress, no accessory muscle use Gastrointestinal: non tender, soft Extremities: normal inspection, no pedal edema Psychiatric: alert, oriented x 3 Crainal Nerves: normal hearing, normal speech, PERRL Coordination/Gait: normal finger to nose, normal gait Motor/Sensory: no motor deficit, no sensory deficit Skin: normal color, warm/dry, other (patches of smooth alopecia on the scalp, most prominent in the right lower occipital region behind the ear) Progress/Results/Core Measures Results/Orders Lab Results Laboratory Tests Test 01/20/20 23:24 01/20/20 23:47 Range/Units White Blood Count 8.5 4.3-11.0 10^3/uL Red Blood Count 3.59 L 4.35-5.85 10^6/uL Hemoglobin 11.4 L 11.5-16.0 G/DL Hematocrit 34 L 35-52 % Mean Corpuscular Volume 94 80-99 FL Mean Corpuscular Hemoglobin 32 25-34 PG Mean Corpuscular Hemoglobin Concent 34 32-36 G/DL Red Cell Distribution Width 13.9 10.0-14.5 % Platelet Count 166 130-400 10^3/uL Mean Platelet Volume 10.3 7.4-10.4 FL Neutrophils (%) (Auto) 61 42-75 % Lymphocytes (%) (Auto) 31 12-44 % Monocytes (%) (Auto) 5 0-12 % Eosinophils (%) (Auto) 1 0-10 % Basophils (%) (Auto) 1 0-10 % Neutrophils # (Auto) 5.2 1.8-7.8 X 10^3 Lymphocytes # (Auto) 2.7 1.0-4.0 X 10^3 Monocytes # (Auto) 0.5 0.0-1.0 X 10^3 Eosinophils # (Auto) 0.1 0.0-0.3 10^3/uL Basophils # (Auto) 0.0 0.0-0.1 10^3/uL Sodium Level 140 135-145 MMOL/L Potassium Level 3.8 3.6-5.0 MMOL/L Chloride Level 108 H 98-107 MMOL/L Carbon Dioxide Level 22 21-32 MMOL/L Anion Gap 10 5-14 MMOL/L Blood Urea Nitrogen 21 H 7-18 MG/DL Creatinine 0.69 0.60-1.30 MG/DL Estimat Glomerular Filtration Rate > 60 BUN/Creatinine Ratio 30 Glucose Level 141 H 70-105 MG/DL Calcium Level 9.2 8.5-10.1 MG/DL Corrected Calcium 8.9 8.5-10.1 MG/DL Magnesium Level 2.0 1.6-2.4 MG/DL Total Bilirubin 0.4 0.1-1.0 MG/DL Aspartate Amino Transf (AST/SGOT) 14 5-34 U/L Alanine Aminotransferase (ALT/SGPT) 20 0-55 U/L Alkaline Phosphatase 62 40-136 U/L Total Protein 7.4 6.4-8.2 GM/DL Albumin 4.4 3.2-4.5 GM/DL TSH [place] Testing 1.04 0.35-4.94 UIU/ML Serum Test, Qualitative NEGATIVE NEGATIVE My Orders Orders - MARK BALLARD MD Cbc With Automated Diff (01/20/20 23:41) Comprehensive Metabolic Panel (01/20/20 23:41) Hcg,Qualitative Serum (01/20/20 23:41) Magnesium (01/20/20 23:41) Thyroid Analyzer (01/20/20 23:41) Ed Iv/Invasive Line Start (01/20/20 23:41) Ketorolac Injection (Toradol Injection) (01/20/20 23:45) Orphenadrine Injection (Norflex Injectio (01/20/20 23:45) Syphilis Antibody Screen (01/20/20 23:47) Penicillin G Benzathine Inject (Bicillin (01/21/20 01:45) Medications Given in ED Current Medications Medications Dose Ordered Sig/Guille Route Start Time Stop Time Status Last Admin Dose Admin Ketorolac Tromethamine 15 mg ONCE ONCE IVP 01/20/20 23:45 01/20/20 23:46 DC 01/20/20 23:57 15 MG Orphenadrine Citrate 60 mg ONCE ONCE IV 01/20/20 23:45 01/20/20 23:46 DC 01/20/20 23:57 60 MG Penicillin G Benzathine 2,400,000 unit ONCE ONCE IM 01/21/20 01:45 01/21/20 01:46 DC 01/21/20 01:51 2,400,000 UNIT Vital Signs/I&O 01/20/20 01/21/20 23:04 02:08 Temp 36.6 36.6 Pulse 66 59 Resp 18 18 B/P (MAP) 124/56 (78) 118/68 (78) Pulse Ox 99 99 O2 Delivery Room Air Blood Pressure Mean: 78 Progress Progress Note : Progress Note Patient was seen and examined and interviewed with the aix system administrator via the phone language line. Workup was unremarkable. She was treated with Toradol and Norflex with some improvement in her symptoms. I had some concern for possible syphilis due to the nature of her alopecia associated with headache, especially since she is in an immigrant population. I discussed this with the patient at length via the aix system administrator. Patient denied any known sexual risk factors and denied any past history of STI's or genital symptoms. I advised her to treat with a dose of IM penicillin while we are awaiting syphilis screening tests. Patient is agreeable. It is also possible she is experiencing some tinea capitis from wearing the helmet at work. For this reason terbinafine was prescribed. See discharge instructions for further discussion. Syphilis screening was obtained and patient was advised to follow-up with the [facility] clinic. Departure Impression Primary Impression: Alopecia Additional Impression: Headache Qualified Codes: R51 - Headache Disposition: 01 HOME, SELF-CARE Condition: Improved Departure-Patient Inst. Decision time for Depature: 01:00 Referrals: WILFRED SAPP MD (PCP/Family) Primary Care Physician Patient Instructions: Headache, Adult (DC), Syphilis, Tinea Capitis (DC) Add. Discharge Instructions: Headache - For headache you may continue taking ibuprofen up to 600 mg every 6 hours and Tylenol (acetaminophen) up to 1000 mg every 6 hours. Your neck muscles are very tight. You can help them relax with gentle heat such as a heating pad or warm moist towel. You may add the cyclobenzaprine muscle relaxer prescribed to help relax the stiff muscles. Hair loss - Your hair loss may be due to a fungal infection, possibly from wearing the helmet at work. Use the antifungal medicine as prescribed for one month. As discussed in your ER visit, there was lab work drawn in the emergency room that needs to be reviewed with your primary care provider. Please follow-up with the [facility] within one week to review results. It is recom mended that she will abstain from sexual activity until you have the results of these tests. Return to the emergency room if you have worsening symptoms. All discharge instructions reviewed with patient and/or family. Voiced understanding. Scripts Terbinafine HCl (Terbinafine HCl) 250 Mg Tablet 250 MG PO DAILY, #30 TAB Prov: MARK BALLARD MD 01/21/20 Cyclobenzaprine HCl (Cyclobenzaprine HCl) 10 Mg Tablet 10 MG PO Q8H PRN for SPASMS, #15 TAB 0 Refills Prov: MARK BALLARD MD 01/21/20 Copy Copies To 1: ZULAY KEARNS JOSHUA T MD Jan 21, 2020 01:49
[2020-01-21 02:08] VITALS: BP 118/68
== END 2020-01-21 01:53 | disposition home or self-care (01) ==
LOC: EDUNIT# 22:51 → ER 22:52
DX: L65.9 Nonscarring hair loss, unspecified (principal); R51 Headache
CPT/HCPCS: 36415; 80053; 83735; 84443; 84703; 85025; 86780

== ENCOUNTER 2020-04-29 21:35 | Inpatient (IN) | payer SELFPAY ==
[~2020-04-29] VITALS: Ht 155 cm; Wt 81.1 kg
[~2020-04-29 21:35] MED LIST changes: +CYCL10TA9 PO; +TERB250T16 PO
[2020-04-29] MEDS ORDERED: KETOROLAC 30 MG/ML VIAL IVP STA (22:08)
[2020-04-29 22:09] LABS: BASOPHILS % (AUTO) 0 % (0-10); EOSINOPHILS % (AUTO) 0 % (0-10); HEMATOCRIT 32 % (35-52); HEMOGLOBIN 10.7 G/DL (11.5-16.0); LYMPHOCYTES # (AUTO) 1.5 X 10^3 (1.0-4.0); LYMPHOCYTES % (AUTO) 19 % (12-44); MEAN CORPUSCULAR HEMOGLOBIN 32 PG (25-34); MEAN CORPUSCULAR HGB CONC 34 G/DL (32-36); MEAN CORPUSCULAR VOLUME 95 FL (80-99); MONOCYTES # (AUTO) 0.3 X 10^3 (0.0-1.0); MONOCYTES % (AUTO) 4 % (0-12); NEUTROPHILS # (AUTO) 6.3 X 10^3 (1.8-7.8); NEUTROPHILS % (AUTO) 77 % (42-75); PLATELET COUNT 193 10^3/uL (130-400); RED CELL DISTRIBUTION WIDTH 13.2 % (10.0-14.5); WHITE BLOOD COUNT 8.1 10^3/uL (4.3-11.0)
[2020-04-29] MEDS ORDERED: NS IV 1000 ML 1,000 ML IV ONE (22:13)
[2020-04-29 22:21] LABS: FIBRIN DEGRADATION PRODUCTS 0.57 UG/ML (0.00-0.49); PROTHROMBIN TIME PATIENT 14.1 SEC (12.2-14.7)
[2020-04-29 22:24] LABS: ALBUMIN 4.2 GM/DL (3.2-4.5); CHLORIDE 105 MMOL/L (98-107); POTASSIUM 3.9 MMOL/L (3.6-5.0); SODIUM 136 MMOL/L (135-145)
[2020-04-29 22:25] LABS: CALCIUM 8.6 MG/DL (8.5-10.1)
[2020-04-29 22:26] LABS: GLUCOSE 126 MG/DL (70-105); TOTAL PROTEIN 7.8 GM/DL (6.4-8.2)
[2020-04-29 22:27] LABS: CARBON DIOXIDE 20 MMOL/L (21-32)
[2020-04-29 22:28] LABS: BILIRUBIN,TOTAL 0.8 MG/DL (0.1-1.0)
[2020-04-29 22:30] LABS: ALKALINE PHOSPHATASE 91 U/L (40-136); CREATININE SERUM 0.65 MG/DL (0.60-1.30); GFR ESTIMATED > 60
[2020-04-29 22:31] LABS: BUN/CREATININE RATIO 12
[2020-04-29 22:32] LABS: ERYTHROCYTE SEDIMENTATION RATE 53 MM/HR (0-20)
[2020-04-29 22:33] LABS: ALANINE AMINOTRANSFERASE 78 U/L (0-55)
--- NOTE | 2020-04-29 23:18 | ED General ---
General Chief Complaint: Chest Pain Stated Complaint: FEVER/VOMITING/SOB Nursing Triage Note: cough, fever, chest pain, headache started monday. reports being tested monday for covid. works at [employer]. Nursing Sepsis Screen: Possible Severe Sepsis Risk Source of Information: Patient Exam Limitations: Language Barrier History of Present Illness Date Seen by Provider: Apr 29, 2020 Time Seen by Provider: 21:40 Initial Comments Here with report of cough, fever, chest pain, headache and overall Oddi aches. She reports not feeling well and now has shortness of air. 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 She is unsure of his results. States everything seems to be getting worse over the last couple of days. Denies nausea or vomiting but has decreased appetite. Has had some loose stools. Took 2 Tylenol 1 hour ago. Timing/Duration: 4-5 Days, Getting Worse Severity: Moderate Modifying Factors: improves with Rest Associated Systoms: No Chest Pain; Cough, Fever/Chills; No Nausea/Vomiting; Shortness of Air, Weakness Allergies and Home Medications Allergies Coded Allergies: No Known Drug Allergies (Unverified , 12/10/17) Home Medications No Active Prescriptions or Reported Meds Patient Home Medication List Home Medication List Reviewed: Yes Review of Systems Review of Systems Constitutional: see HPI, chills, fever EENTM: no symptoms reported Respiratory: cough, dyspnea on exertion, short of breath Cardiovascular: chest pain; No palpitations Gastrointestinal: No nausea, No vomiting Genitourinary: no symptoms reported Musculoskeletal: muscle pain, muscle weakness; No neck pain Skin: no symptoms reported Psychiatric/Neurological: No Symptoms Reported Hematologic/Lymphatic: No Symptoms Reported All Other Systems Reviewed Negative Unless Noted: Yes Past Ssahlpn-Uakbdp-Xinhsx Hx Past Med/Social Hx: Reviewed Nursing Past Med/Soc Hx Patient Social History Alcohol Use: Denies Use Recreational Drug Use: No Smoking Status: Never a Smoker 2nd Hand Smoke Exposure: No Recent Foreign Travel: No Contact w/Someone Who Travel: No Recent Infectious Disease Expo: No Recent Hopitalizations: No Immunizations Up To Date Tetanus Booster (TDap): Unknown Date of Influenza Vaccine: Aug 20, 2018 Seasonal Allergies Seasonal Allergies: No Past Medical History Surgeries: Yes (HIP) Section, Orthopedic Respiratory: No Cardiac: No Neurological: No : No Sexually Transmitted Disease: No HIV/AIDS: No Genitourinary: No Gastrointestinal: No Musculoskeletal: No Endocrine: No HEENT: No Loss of Vision: Denies Hearing Impairment: Denies Cancer: No Psychosocial: No Integumentary: No Blood Disorders: No Adverse Reaction/Blood Tranf: No Family Medical History Reviewed Nursing Family Hx Patient reports no known family medical history. Physical Exam-Suspected Sepsis Physical Exam Vital Signs Vital Signs - First Documented 04/29/20 22:10 O2 Flow Rate 2.00 Capillary Refill : Less Than 3 Seconds Blood Pressure Mean: 97 Height, Weight, BMI Height: 5'4.00" Weight: 189lbs. 0.0oz. 85.043568kg; 34.00 BMI Method: General Appearance: No Apparent Distress, WD/WN HEENT: PERRL/EOMI, Pharyngeal Erythema Neck: Non Tender, Supple Respiratory: Lungs Clear, Crackles; No Wheezing Cardiovascular: Regular Rate, Rhythm, No Murmur Gastrointestinal: Non Tender, Soft Extremity: Normal Range of Motion, Non Tender Neurologic/Psychiatric: Alert, Oriented x3 Skin: normal color, warm/dry Focused Exam Lactate Level 04/29/20 22:00: Lactic Acid Level 0.92 Lactic Acid Level Laboratory Tests Test 04/29/20 22:00 Lactic Acid Level 0.92 MMOL/L (0.50-2.00) Progress/Results/Core Measures Suspected Sepsis Recent Fever Within 48 Hours: Yes Infection Criteria Present: Documented Infection New/Unexplained Altered Menta: No Sepsis Screen: Possible Severe Sepsis Risk SIRS Temperature: Pulse: 97 Respiratory Rate: 22 Laboratory Tests 04/29/20 22:00: White Blood Count 8.1 Blood Pressure 130 /81 Mean: 97 04/29/20 22:00: Lactic Acid Level 0.92 Laboratory Tests 04/29/20 22:00: Creatinine 0.65, INR Comment 1.0, Platelet Count 193, Total Bilirubin 0.8 Results/Orders Lab Results Laboratory Tests Test 04/29/20 22:00 Range/Units White Blood Count 8.1 4.3-11.0 10^3/uL Red Blood Count 3.35 L 4.35-5.85 10^6/uL Hemoglobin 10.7 L 11.5-16.0 G/DL Hematocrit 32 L 35-52 % Mean Corpuscular Volume 95 80-99 FL Mean Corpuscular Hemoglobin 32 25-34 PG Mean Corpuscular Hemoglobin Concent 34 32-36 G/DL Red Cell Distribution Width 13.2 10.0-14.5 % Platelet Count 193 130-400 10^3/uL Mean Platelet Volume 9.0 7.4-10.4 FL Neutrophils (%) (Auto) 77 H 42-75 % Lymphocytes (%) (Auto) 19 12-44 % Monocytes (%) (Auto) 4 0-12 % Eosinophils (%) (Auto) 0 0-10 % Basophils (%) (Auto) 0 0-10 % Neutrophils # (Auto) 6.3 1.8-7.8 X 10^3 Lymphocytes # (Auto) 1.5 1.0-4.0 X 10^3 Monocytes # (Auto) 0.3 0.0-1.0 X 10^3 Eosinophils # (Auto) 0.0 0.0-0.3 10^3/uL Basophils # (Auto) 0.0 0.0-0.1 10^3/uL Erythrocyte Sedimentation Rate 53 H 0-20 MM/HR Prothrombin Time 14.1 12.2-14.7 SEC INR Comment 1.0 0.8-1.4 Activated Partial Thromboplast Time 37 H 24-35 SEC D-Dimer 0.57 H 0.00-0.49 UG/ML Sodium Level 136 135-145 MMOL/L Potassium Level 3.9 3.6-5.0 MMOL/L Chloride Level 105 98-107 MMOL/L Carbon Dioxide Level 20 L 21-32 MMOL/L Anion Gap 11 5-14 MMOL/L Blood Urea Nitrogen 8 7-18 MG/DL Creatinine 0.65 0.60-1.30 MG/DL Estimat Glomerular Filtration Rate > 60 BUN/Creatinine Ratio 12 Glucose Level 126 H 70-105 MG/DL Lactic Acid Level 0.92 0.50-2.00 MMOL/L Calcium Level 8.6 8.5-10.1 MG/DL Corrected Calcium 8.4 L 8.5-10.1 MG/DL Total Bilirubin 0.8 0.1-1.0 MG/DL Aspartate Amino Transf (AST/SGOT) 51 H 5-34 U/L Alanine Aminotransferase (ALT/SGPT) 78 H 0-55 U/L Alkaline Phosphatase 91 40-136 U/L Lactate Dehydrogenase 265 H 125-220 U/L Troponin I 0.030 H <0.028 NG/ML C-Reactive Protein High Sensitivity 10.28 H 0.00-0.50 MG/DL Total Protein 7.8 6.4-8.2 GM/DL Albumin 4.2 3.2-4.5 GM/DL Procalcitonin 0.24 H <0.10 NG/ML Serum Test, Qualitative NEGATIVE NEGATIVE My Orders Orders - PRESTON VENEGAS MD Cbc With Automated Diff (04/29/20 21:57) Comprehensive Metabolic Panel (04/29/20 21:57) Blood Culture (04/29/20 21:57) Sputum Culture (04/29/20 21:57) Urinalysis (04/29/20:57) Urine Culture (04/29/20:57) Protime With Inr (04/29/20:57) Partial Thromboplastin Time (04/29/20:57) Chest 1 View, Ap/Pa Only (04/29/20:57) Ed Iv/Invasive Line Start (04/29/20 21:57) Ed Iv/Invasive Line Start (04/29/20 21:57) Ekg Tracing (04/29/20 21:57) Troponin I (04/29/20 21:57) Vital Signs Adult Sepsis Patie Q15M (04/29/20 21:57) O2 (04/29/20:57) Remove Rings In Anticipation O (04/29/20:57) Lactic Acid Analyzer (04/29/20 21:57) Fibrin Degradation Products (04/29/20 21:57) Procalcitonin (Pct) (04/29/20:57) Hs C Reactive Protein (04/29/20:57) Erythrocyte Sedimentation Rate (04/29/20 21:57) LDH (04/29/20 21:57) Hcg,Qualitative Serum (04/29/20:57) Ketorolac Injection (Toradol Injection) (04/29/20 22:08) Ns Iv 1000 Ml (Sodium Chloride 0.9%) (04/29/20 22:13) Covid-19 External Lab Results (04/29/20 22:47) Medications Given in ED Current Medications Medications Dose Ordered Sig/Guille Route Start Time Stop Time Status Last Admin Dose Admin Sodium Chloride 1,000 ml @ 0 mls/hr Q0M ONCE IV 04/29/20 22:13 04/29/20 22:16 DC 04/29/20 22:05 0 MLS/HR Vital Signs/I&O 04/29/20 04/29/20 04/29/20 04/29/20 21:45 21:45 22:10 22:12 Temp 38.8 38.8 Pulse 97 Resp 22 B/P (MAP) 130/81 (97) Pulse Ox 94 95 O2 Delivery Room Air Room Air Nasal Cannula O2 Flow Rate 2.00 Capillary Refill : Less Than 3 Seconds Blood Pressure Mean: 97 Progress Note : Progress Note Seen and evaluated. IV, labs, chest x-ray and EKG ordered. Patient did take Tylenol 1 g by mouth an hour ago but still has fever. We will initiate IV fluids and Toradol 15 mg IV. I did discuss the case with Dr. Hall [facility]. She did look up the patient's results and was noted that she is actually positive as of 24 April. It does appear that she has additional sequela now. She did require 2 L of oxygen to keep O2 sats in mid or upper 90s and it does help make her feel better. Monitor patient. 2310: Chest x-ray does show lateral infiltrates that are mild. Patient is otherwise stable currently. I did discuss the case with Dr. Meeks and she accepts patient for admission, inpatient status for COVID-19 infection with sequela. Patient agrees with plan. ECG Initial ECG Impression Date: Apr 29, 2020 Initial ECG Impression Time: 21:49 Initial ECG Rate: 93 Initial ECG Rhythm: Normal Sinus Initial ECG Impression: Normal Initial ECG Comparisson: No Previous ECG Available Comment Sinus rhythm with normal axis. No evidence of ST elevation AK. No previous available for comparison. Interpreted by me. Diagnostic Imaging Diagonstic Imaging: Xray Plain Films/CT/US/NM/MRI: chest Comments Bilateral lower lobe and lateral patchy infiltrates with left greater than right. Departure Impression Primary Impression: Coronavirus infection Disposition: ADMITTED INPATIENT Condition: Stable Departure-Patient Inst. Referrals: WILFRED SAPP MD (PCP/Family) Primary Care Physician Scripts No Active Prescriptions or Reported Meds PRESTON VENEGAS MD Apr 29, 2020 23:18
--- NOTE | 2020-04-29 23:45 | NUR ---
Language line used during triage and to notify patient she will be admitted to the floor by Dr. So.
[2020-04-30] VITALS (9 sets, daily range): BP systolic 104–132; BP diastolic 60–72
[2020-04-30 00:08] LABS: BILIRUBIN,URINE NEGATIVE (NEGATIVE); CLARITY,URINE CLOUDY; COLOR,URINE YELLOW; GLUCOSE, URINE (UA) NEGATIVE (NEGATIVE); KETONES,URINE NEGATIVE (NEGATIVE); LEUKOCYTE ESTERASE ,URINE 1+ (NEGATIVE); NITRITE,URINE NEGATIVE (NEGATIVE); PROTEIN,URINE NEGATIVE (NEGATIVE)
[2020-04-30 00:21] LABS: BACTERIA,URINE FEW /HPF; RBC,URINE 0-2 /HPF
[2020-04-30] MEDS ORDERED: ACETAMINOPHEN 325 MG TABLET ONE (00:29)
[2020-04-30] MEDS ORDERED: LACTATED RINGERS 1,000 ML IV ONE (00:29)
--- NOTE | 2020-04-30 00:30 | NUR ---
BILLY NAQVI admitted to room 432-1, with an admitting diagnosis of COVID 19 POSITIVE, on 04/29/20 from ER via , accompanied by THIS RN. BILLY NAQVI introduced to surroundings, call light, bed controls, phone, TV, temperature control, lights, meal times, smoking policy, visitor policy, side rail policy, bathrooms and showers. Patient Rights given to patient in the handbook. BILLY NAQVI verbalizes understanding that [facility] is not responsible for the loss or damage to any personal effects or valuables that are kept in the patients posession during their hospitalization. BILLY NAQVI verbalizes understanding of Interdisciplinary Patient Education. Patient and/or family were informed about the Rapid Response Team and its purpose.
[2020-04-30] MEDS ORDERED: fentaNYL INJECTION 100 MCG/2 ML AMP IV PRN (00:45)
[2020-04-30] MEDS: ACETAMINOPHEN 500 MG TAB (TYLENOL) PO PRN ×3 (00:45→18:27)
[2020-04-30] MEDS: LACTATED RINGERS 1,000 ML IV SCH ×3 (00:46→20:18)
[2020-04-30 05:34] LABS: BASOPHILS % (AUTO) 0 % (0-10); EOSINOPHILS % (AUTO) 0 % (0-10); HEMATOCRIT 29 % (35-52); HEMOGLOBIN 9.6 G/DL (11.5-16.0); LYMPHOCYTES # (AUTO) 1.5 X 10^3 (1.0-4.0); LYMPHOCYTES % (AUTO) 24 % (12-44); MEAN CORPUSCULAR HEMOGLOBIN 32 PG (25-34); MEAN CORPUSCULAR HGB CONC 33 G/DL (32-36); MEAN CORPUSCULAR VOLUME 96 FL (80-99); MEAN PLATELET VOLUME 9.5 FL (7.4-10.4); MONOCYTES # (AUTO) 0.3 X 10^3 (0.0-1.0); MONOCYTES % (AUTO) 4 % (0-12); NEUTROPHILS # (AUTO) 4.5 X 10^3 (1.8-7.8); NEUTROPHILS % (AUTO) 71 % (42-75); PLATELET COUNT 190 10^3/uL (130-400); RED CELL DISTRIBUTION WIDTH 13.6 % (10.0-14.5); WHITE BLOOD COUNT 6.3 10^3/uL (4.3-11.0)
--- NOTE | 2020-04-30 05:50 | Diagnostic Imaging Report ---
INDICATION: Covid patient with chest pain. FINDINGS: Portable chest. The lungs are well-aerated. There are a few patchy alveolar infiltrates noted bilaterally predominantly in the lower lobes. The heart is not enlarged. No pneumothorax or pleural effusion. No bony abnormalities. IMPRESSION: Mild patchy bilateral alveolar infiltrates are present. Dictated by: Dictated on workstation # [id number]
[2020-04-30 05:58] LABS: ALANINE AMINOTRANSFERASE 61 U/L (0-55); ALBUMIN 3.6 GM/DL (3.2-4.5); ALKALINE PHOSPHATASE 72 U/L (40-136); BILIRUBIN,TOTAL 0.7 MG/DL (0.1-1.0); BUN/CREATININE RATIO 11; CARBON DIOXIDE 23 MMOL/L (21-32); CHLORIDE 108 MMOL/L (98-107); CREATININE SERUM 0.63 MG/DL (0.60-1.30); GFR ESTIMATED > 60; GLUCOSE 88 MG/DL (70-105); POTASSIUM 3.9 MMOL/L (3.6-5.0); SODIUM 140 MMOL/L (135-145); TOTAL PROTEIN 6.8 GM/DL (6.4-8.2)
[2020-04-30] MEDS ORDERED: RT-ALBUTEROL INHALER HFA (VENTOLIN HFA) 8 GM IH PRN (10:15)
[2020-04-30] MEDS: ONDANSETRON 4 MG/2 ML (SDV) Z0FRAN IV PRN ×2 (12:10→18:25)
--- NOTE | 2020-04-30 13:32 | History & Physical-Hospitalist ---
History of Present Illness HPI/Chief Complaint Pt is a 35yoHF who presented to the ER due to cough, fever, myalgias, and chest tightness. She was tested for COVID19 on 04/24 and was found to be positive per report from Dr. Hall. Over the last couple of days her symptoms have worsened prompting her to seek evaluation in the ER. She was found to be mildly hypoxic requiring 2lpm NC to keep her saturation above 90. This morning I spoke to her via the language line and her complaints are that she has a headache and is nauseated. She denies any vomiting. She asked for a cool washrag for her head but otherwise had no complaints or concerns. Source: patient Date Seen 04/30/20 Time Seen by a Provider: 13:22 Attending Physician María Elena Hammer Bethany N MD Referring Physician Date of Admission Apr 29, 2020 at 23:11 Home Medications & Allergies Home Medications Reviewed patient Home Medication Reconciliation performed by pharmacy medication reconciliations gastroenterology technician and/or nursing. Patients Allergies have been reviewed. Allergies Allergies Coded Allergies No Known Drug Allergies (Unverified12/10/17) Past Mlzvqpy-Tjibyd-Rpjfyg Hx Past Med/Social Hx: Reviewed Nursing Past Med/Soc Hx Patient Social History Alcohol Use: Denies Use Recreational Drug Use: No Smoking Status: Never a Smoker 2nd Hand Smoke Exposure: No Recent Foreign Travel: No Contact w/other who traveled: No Recent Hopitalizations: No Recent Infectious Disease Expo: No Immunizations Up To Date Tetanus Booster (TDap): Unknown Date of Influenza Vaccine: Aug 20, 2018 Seasonal Allergies Seasonal Allergies: No Past Medical History Surgeries: Section, Orthopedic : No Sexually Transmitted Disease: No HIV/AIDS: No Loss of Vision: Denies Hearing Impairment: Denies History of Blood Disorders: No Adverse Reaction to Blood Dixon: No Family History Reviewed Nursing Family Hx Patient reports no known family medical history. No Pertinent Family Hx Review of Systems Constitutional: fever, malaise, weakness EENTM: no symptoms reported Respiratory: cough, dyspnea on exertion, short of breath Cardiovascular: chest pain ("chest tightness"); No edema, No Hx of Intervention, No palpitations Gastrointestinal: No abdominal pain; diarrhea, nausea; No vomiting Genitourinary: no symptoms reported Musculoskeletal: see HPI Skin: no symptoms reported Psychiatric/Neurological: Headache Physical Exam Physical Exam Vital Signs Vital Signs - First Documented 04/29/20 04/30/20 22:10 09:34 O2 Flow Rate 2.00 FiO2 21 Capillary Refill : Less Than 3 Seconds Height, Weight, BMI Height: 5'4.00" Weight: 189lbs. 0.0oz. 85.018660fb; 33.75 BMI Method: General Appearance: WD/WN, Other (appears to not feel well but not in any distress) Respiratory: Lungs Clear, No Accessory Muscle Use, No Respiratory Distress Cardiovascular: Regular Rate, Rhythm, No Murmur Gastrointestinal: Normal Bowel Sounds, Soft Extremity: Normal Capillary Refill, No Calf Tenderness, No Pedal Edema Neurologic/Psychiatric: Alert, Oriented x3 Results Results/Procedures Labs Laboratory Tests 04/29/20 22:00 04/30/20 04:50 Patient resulted labs reviewed. Imaging: Reviewed Imaging Report [facility] [place], [place] NAME: VICENTE BAZANBILLY Kimberli [facility] REC#: [id number] PT STATUS: ADM IN : 1985 PHYSICIAN: PRESTON VENEGAS MD ADMIT DATE: 04/29/20 Signed Date of Exam:04/29/20 CHEST 1 VIEW, AP/PA ONLY INDICATION: Covid patient with chest pain. FINDINGS: Portable chest. The lungs are well-aerated. There are a few patchy alveolar infiltrates noted bilaterally predominantly in the lower lobes. The heart is not enlarged. No pneumothorax or pleural effusion. No bony abnormalities. IMPRESSION: Mild patchy bilateral alveolar infiltrates are present. Assessment/Plan Admission Diagnosis COVID19 infection Admission Status: Inpatient Order (span 2 midnights) Reason for Inpatient Admission: hypoxia, high risk for decompensation Assessment and Plan COVID19 infection Nausea Continue symptomatic treatment Remains febrile this morning but is on room air and satting 98 Zofran ordered If become more hypoxic or clinically worsens will start remdesivir LFTs trending down today, will monitor if remdesivir needed LR at 100ml/hr Anemia Hgb 9.6 trend DVT PPX: Lovenox Diagnosis/Problems Diagnosis/Problems (1) Coronavirus infection Status: Acute (2) Nausea Clinical Quality Measures AMI/AHF: ASA po Prior to arrival: No DVT/VTE Risk/Contraindication: Risk Factor Score Per Nursin RFS Level Per Nursing on Admit: 1=Low/No VTE PPX GIOVANNI RIZVI MD Apr 30, 2020 13:32
[2020-04-30] MEDS: RT-ALBUTEROL INHALER HFA (VENTOLIN HFA) 8 GM IH SCH ×2 (20:29→20:32)
[2020-04-30] MEDS ORDERED: ENOXAPARIN 40 MG/0.4 ML (LOVENOX) SYR SC SCH (20:30)
[2020-05-01 03:00] VITALS: BP 111/79
[2020-05-01] MEDS: LACTATED RINGERS 1,000 ML IV SCH (03:30)
[2020-05-01 08:25] VITALS: BP 119/76
--- NOTE | 2020-05-01 11:58 | Discharge Summary ---
Diagnosis/Chief Complaint Date of Admission Apr 29, 2020 at 23:11 Date of Discharge Admission Diagnosis COVID19 infection Primary Care Uzma Montano MD Discharge Diagnosis (1) Coronavirus infection Status: Acute (2) Nausea Discharge Summary Discharge Physical Exam Allergies: Coded Allergies: No Known Drug Allergies (Unverified , 12/10/17) Vitals & I&Os Vital Signs Date Time Temp Pulse Resp B/P (MAP) Pulse Ox O2 Delivery O2 Flow Rate FiO2 05/01/20 08:40 Room Air 05/01/20 08:25 37.3 71 17 119/76 (90) 97 04/30/20 09:34 21 04/30/20 04:59 2.00 General Appearance: No Apparent Distress, WD/WN Respiratory: Lungs Clear, No Respiratory Distress Cardiovascular: Regular Rate, Rhythm, No Murmur Hospital Course Labs (last 24 hrs) Microbiology 04/29/20 Urine Culture - Final, Complete 3 or more isolates 04/29/20 Blood Culture - Preliminary, Resulted No growth Patient resulted labs reviewed. Imaging: Reviewed Imaging Report Discharge Home Medications: Active Scripts Active No Active Prescriptions or Reported Medications Instructions to patient/family Please see electronic discharge instructions given to patient. Clinical Quality Measures AMI/AHF: ASA po Prior to arrival: No DVT/VTE Risk/Contraindication: Risk Factor Score Per Nursin RFS Level Per Nursing on Admit: 1=Low/No VTE PPX GIOVANNI RIZVI MD May 01, 2020 11:58
--- NOTE | 2020-05-01 12:25 | NUR ---
Patient given [place] and [place] home care and quarentine information. [facility] Vanessa HUMPHREY Notified of Discharge.
[2020-05-01 12:50] VITALS: BP 125/72
[2020-05-01] MEDS ORDERED: ACET-93 PO (13:17)
[2020-05-01] MEDS ORDERED: ALBU18HF2 IH (13:17)
--- NOTE | 2020-05-01 13:20 | Discharge Inst-Simple/Standard ---
Discharge Inst-Standard Patient Instructions/Follow Up Plan of Care/Instructions/FU: Please continue to take your medications as written. Please follow up with your primary care doctor within a week to follow up your hospital stay. Activity as Tolerated: Yes Discharge Diet: No Restrictions Return to The Hospital For: Chest pain, shortness of breath, abdominal pain, nausea, vomiting, worsening fever, if you feel you are getting worse. GIOVANNI RIZVI MD May 01, 2020 13:20
[2020-05-01] MEDS ORDERED: ENOXAPARIN 40 MG/0.4 ML (LOVENOX) SYR SC SCH (22:00)
== END 2020-05-01 17:00 | disposition home or self-care (01) | DRG 179 ==
LOC: EDUNIT# 21:35 → ER 21:37 → 4TH 23:11
PROVIDERS: ADMIT Internal Medicine; ATTEND Internal Medicine
DX: U07.1 COVID-19 (principal); R09.02 Hypoxemia; D64.9 Anemia, unspecified
CPT/HCPCS: 36415; 71045; 80053; 81000; 83605; 83615; 84145; 84484; 84703; 85025; 85379; 85610; 85652; 85730; 86141; 87040; 87088; 93005; 94640; 94760

== ENCOUNTER 2022-08-09 05:29 | Outpatient (CLI) | payer BC ==
[~2022-08-09] VITALS: Ht 165 cm; Wt 91.4 kg
[~2022-08-09 05:29] MED LIST changes: +ACET-93 PO; +ALBU18HF2 IH; +CYCL10TA25 PO; -CYCL10TA9 PO; -TERB250T16 PO; +TERB250T88 PO
== END 2022-08-09 17:07 ==
LOC: PREOP 05:29
PROVIDERS: ATTEND Obstetrics & Gynecology
DX: Z01.818 Encounter for other preprocedural examination (principal)

== ENCOUNTER 2022-08-15 04:00 | Inpatient (IN) | payer BC ==
[2022-08-15] VITALS (9 sets, daily range): BP systolic 118–139; BP diastolic 71–93
[~2022-08-15] VITALS: Ht 164 cm; Wt 92.0 kg
[2022-08-15] MEDS ORDERED: ceFAZolin INJECTION 1,000 MG VIAL IV ONE (07:30)
[2022-08-15] MEDS ORDERED: METOCLOPRAMIDE INJ 10 MG/2 ML (REGLAN) IV ONE (07:30)
[2022-08-15] MEDS ORDERED: CATHETER FLUSH 10 ML SYR IV PRN (07:30)
[2022-08-15] MEDS ORDERED: FAMOTIDINE 20MG/2ML IV (PEPCID) IV ONE (07:30)
[2022-08-15] MEDS ORDERED: CITRIC ACID/SOB CIT (BICITRA) 30 ML UDC PO ONE (07:30)
[2022-08-15] MEDS ORDERED: LACTATED RINGERS 1,000 ML IV PRN ×2 (07:30)
--- NOTE | 2022-08-15 07:30 | History & Physical-OB ---
OB - Chief Complaint & HPI Date/Time Date of Admission: Date of Admission: Aug 15, 2022 at 07:15 Date seen by a Provider: Aug 15, 2022 Time Seen by a Provider: 08:30 Chief Complaint/History OB-Reason for Admission/Chief: Section Hx : 7 Hx Para: 4 Expected Date of Delivery: Aug 20, 2022 Gestational Age in Weeks: 39 Gestational Age in Days: 2 Indication for : desires repeat Admission Nurse Assessment Rev: Yes Allergies and Home Medications Allergies Coded Allergies: No Known Drug Allergies (Unverified , 08/09/22) Patient Home Medication List Home Medication List Reviewed: Yes Acetaminophen (Acetaminophen) 500 Mg Tablet, 1,000 MG PO Q6H PRN for PAIN-MILD (1-4)/FEVER Prescribed by: GIOVANNI RIZVI on 05/01/20 1317 Discontinued Medications Albuterol Sulfate (Ventolin Hfa) 18 Gm Hfa.aer.ad, 0 GM IH Q2H PRN for SHORTNESS OF BREATH Discontinued Reason: No Longer Taking Prescribed by: GIOVANNI RIZVI on 05/01/20 1317 OB - History Hx of Present Care: Yes Ultrasounds: Normal mid trimester US Obstetrical Complications: None Medical Complications: None Delivery History Adverse Rxn to Tranfusion: No Patient Past Medical History n/a Social History/Family History 2nd Hand Smoke Exposure: No Immunizations Tetanus Booster (TDap): Unknown OB - Admission Exam Physical Exam HEENT: NCAT Heart: Rhythm Normal Lungs: Clear Abdomen: Gravid Extremities: Normal Reflexes: Normal Heart Rate: 130's Accelerations: Accelerations Present Decelerations: No Decelerations Short Term Variability: Present Director Patient Variability: Average (6-25) Contractions on Admission: >10 Minutes Apart OB - Assessment/Plan/Diagnosis Assessment Assessment: section Admission Dx 37 yo @ 39.2 Previous Admission Status: Inpatient Order (span 2 midnights) Reason for Inpatient Admission: RLTCS at 39 weeks Plan Plan: Section GLENN ACE DO Aug 15, 2022 07:30
[2022-08-15 08:24] LABS: BASOPHILS % (AUTO) 0 % (0-10); EOSINOPHILS # (AUTO) 0.1 10^3/uL (0.0-0.3); EOSINOPHILS % (AUTO) 1 % (0-10); HEMATOCRIT 33 % (35-52); HEMOGLOBIN 10.8 g/dL (11.5-16.0); LYMPHOCYTES # (AUTO) 1.8 10^3/uL (1.0-4.0); LYMPHOCYTES % (AUTO) 21 % (12-44); MEAN CORPUSCULAR HEMOGLOBIN 34 pg (25-34); MEAN CORPUSCULAR HGB CONC 33 g/dL (32-36); MEAN CORPUSCULAR VOLUME 102 fL (80-99); MEAN PLATELET VOLUME 11.6 fL (9.0-12.2); MONOCYTES # (AUTO) 0.5 10^3/uL (0.0-1.0); MONOCYTES % (AUTO) 6 % (0-12); NEUTROPHILS # (AUTO) 6.5 10^3/uL (1.8-7.8); NEUTROPHILS % (AUTO) 72 % (42-75); PLATELET COUNT 147 10^3/uL (130-400)
[2022-08-15 08:26] LABS: SMEAR SCAN COMMENT YES
[2022-08-15] MEDS ORDERED: fentaNYL INJ 100 MCG/2 ML AMP ONE (09:14)
[2022-08-15] MEDS ORDERED: OXYTOCIN PRE-MIX DRIP 1,000 ML IV ONE (09:14)
[2022-08-15] MEDS ORDERED: BUPIVACAINE 0.5% 30 ML (SENSORCAINE) VIAL ONE (09:14)
[2022-08-15] MEDS ORDERED: MEASLES,MUMPS,RUBELLA 1 EA INJ SC SCH (09:30)
[2022-08-15] MEDS ORDERED: ONDANSETRON 4 MG/2 ML (SDV) Z0FRAN IVP PRN ×2 (09:30→10:45)
[2022-08-15] MEDS ORDERED: NALOXONE 0.4 MG/ML 1 ML (NARCAN) VIAL IV PRN (09:30)
[2022-08-15] MEDS ORDERED: TETANUS,DIPTH,PERTUSS P/F (BOOSTRIX) 0.5 ML VIAL IM SCH (09:30)
--- NOTE | 2022-08-15 09:32 | Discharge Inst-Women's Service ---
Discharge Inst-Women's Serv Depart Medication/Instructions New, Converted or Re-Newed RX: Transmitted to Pharmacy Final Diagnosis POD 2 RLTCS Problems Reviewed?: Yes Consults/Follow Up Additional Follow Up: Yes Orders/Referrals Dr. Franco in 7-10 days and LOLIS/Dusty in 6 weeks Activity Activity: Activity as Tolerated Driving Instructions: No Driving for 1 Week NO SMOKING: NO SMOKING Nothing Inside Vagina: No Douching, No Verdi, No Tampons Diet Discharge Diet: No Restrictions Symptoms to Report to : Bleeding Excessive, Pain Increased, Fever Over 101 Degrees F, Vaginal Bleeding Increase, Questions/Concerns For Any Problems or Questions: Contact Your Physician Skin/Wound Care Infection Signs and Symptoms: Increased Redness, Foul Odor of Wound, Increased Drainage, Skin Itchy or Has a Rash, Increased Swelling, Temperature Above 101 F Operative Area Clean and Dry: Keep Incision Clean/Dry Stitches/Jose L/Dermabond: Dermabond, Care of Stitches Bathing Instructions: GLENN Hagen DO Aug 15, 2022 09:32
[2022-08-15] MEDS ORDERED: ACHD5005 PO (09:33)
[2022-08-15] MEDS ORDERED: IBUP-844 PO (09:33)
[2022-08-15] MEDS ORDERED: DOCU100C37 PO (09:33)
[2022-08-15] MEDS ORDERED: KETOROLAC 30 MG/ML VIAL ONE (10:03)
[2022-08-15] MEDS ORDERED: HYDROmorphone 2 MG/ML VIAL (DILAUDID) IV ONE (10:45)
[2022-08-15] MEDS: OXYTOCIN PRE-MIX DRIP 500 ML IV SCH ×2 (11:12→11:35)
[2022-08-15] MEDS: HYDROcodone/APAP 5 MG/325 MG (LORTAB) TAB PO PRN ×2 (12:41→22:42)
[2022-08-15] MEDS: KETOROLAC 30 MG/ML VIAL IV SCH ×2 (16:17→22:41)
--- NOTE | 2022-08-15 18:47 | OPERATIVE REPORT ---
DATE OF SERVICE: PREOPERATIVE DIAGNOSES: 1. A 37-year-old G7, P4 at 39 weeks gestation. 2. Previous section. POSTOPERATIVE DIAGNOSES: 1. A 37-year-old G7, P4 at 39 weeks gestation. 2. Previous section. PROCEDURE PERFORMED: Repeat low transverse section. SURGEON: Marcial Ace DO. ANESTHESIA: Spinal. ESTIMATED BLOOD LOSS: 600 mL. URINE OUTPUT: 100 mL clear at the end of the procedure. FLUIDS: 1500 mL lactated Ringer's solution. FINDINGS: A live female infant weighing 8 pounds 7 ounces, Apgars 8, 9 and 9. Grossly normal appearing uterus, bilateral fallopian tubes and ovaries. SPECIMEN SENT: Placenta. INDICATIONS FOR PROCEDURE: This 37-year-old female is a patient, who had sought care at [facility] with Dr. Uzma Montano. She was referred to my office for repeat , discussed with the patient in the preoperative visit as well as the preoperative area risks of the surgery. After all of her questions were answered and consent was obtained, the patient was taken to the operating room. OPERATIVE REPORT IN DETAIL: Once in the operating room, spinal analgesia was found to be adequate, she was placed in supine position with leftward tilt, and prepped and draped in normal sterile fashion. A timeout was performed and anesthesia was tested. I made a Pfannenstiel skin incision through the previously existing scar using knife and carried down to the underlying fascia using Bovie cautery. The fascial incision extended laterally using Bovie cautery. Superior aspect of the fascial incision was then grasped with Easton clamps, tented up and dissected off the underlying rectus muscles. The inferior aspect of the fascial incision was then grasped with Easton clamps, tented up and dissected off the underlying rectus muscles. Rectus muscles were dissected down the midline using sharp dissection, which exposed the peritoneum, which I entered bluntly and extended using blunt traction. Paul ring retractor was placed in the peritoneal incision, which offers excellent lateral sidewall retraction. I identified the lower uterine segment, which was found to be thinned out. I made a low transverse incision to the vesicouterine peritoneum and bluntly dissected off the lower uterine segment, creating a bladder flap. I then proceeded with my myotomy until membranes were visualized, at which point, I extended the uterine incision laterally and superiorly using bandage scissors. Amniotomy was performed. In the process of doing this, clear fluid was noted. The infant was found in vertex presentation. With gentle fundal pressure, the infant's head was elevated up to the incision, where the nares and oropharynx were bulb suctioned. Anterior and posterior shoulders were delivered. The infant was then brought to the operative field, where the cord was doubly clamped and cut and was handed off to waiting nurses in attendance. Cord blood was collected, 3-vessel cord with intact placenta with intact placenta was delivered spontaneously thereafter. IV Pitocin was initiated to facilitate uterine contraction. Uterine fundus became firm by manual massage. The uterus was then exteriorized and cleared of all endometrial clots and debris. I then proceeded with closing the uterine incision using 0 Vicryl suture in a running locked fashion. Second layer of imbricating 0 Monocryl was placed. Excellent hemostasis was noted after doing this. I then placed the uterus back in the pelvis and copiously irrigated the pelvis using normal saline. Once again, there was no active bleeding noted from any of my dissection planes. I placed Interceed antiadhesive over my low transverse incision. I removed the Paul ring retractor and then proceeded with closing the peritoneum using 3-0 Vicryl suture in a running fashion. The rectus muscle reapproximated using 3-0 Vicryl suture in an interrupted fashion. The fascia was reapproximated using 0 Vicryl suture in a running fashion. The subcutaneous tissue was reapproximated using 3-0 plain interrupted subcutaneous stitch and skin was reapproximated using 4-0 Monocryl running subcuticular. Dermabond was applied to incision and sterile dressing with adhesive white tape. The patient tolerated the procedure well and sent to recovery in stable condition. Lap and sponge counts were correct at the end of the procedure. Instrument counts correct as well. Two grams of Ancef given preoperatively for infection prophylaxis. Job ID: [id number] DocumentID: [id number] Dictated Date: 08/15/2022 10:23:55 Head Of Design Date: 08/15/2022 18:46:40 Dictated By: MARCIAL ACE DO
[2022-08-15] MEDS: CATHETER FLUSH 10 ML SYR IV SCH ×2 (20:11→22:41)
[2022-08-15] MEDS: DOCUSATE SODIUM 100 MG (COLACE) CAP PO SCH (21:07)
[2022-08-16 01:00] VITALS: BP 132/68
[2022-08-16 05:38] LABS: HEMOGLOBIN 8.9 g/dL (11.5-16.0); MEAN CORPUSCULAR VOLUME 100 fL (80-99)
[2022-08-16 05:40] LABS: BASOPHILS # (AUTO) 0.1 10^3/uL (0.0-0.1); BASOPHILS % (AUTO) 1 % (0-10); EOSINOPHILS # (AUTO) 0.1 10^3/uL (0.0-0.3); EOSINOPHILS % (AUTO) 1 % (0-10); HEMATOCRIT 27 % (35-52); LYMPHOCYTES # (AUTO) 1.6 10^3/uL (1.0-4.0); LYMPHOCYTES % (AUTO) 19 % (12-44); MEAN CORPUSCULAR HEMOGLOBIN 34 pg (25-34); MEAN CORPUSCULAR HGB CONC 33 g/dL (32-36); MEAN PLATELET VOLUME 11.8 fL (9.0-12.2); MONOCYTES # (AUTO) 0.5 10^3/uL (0.0-1.0); MONOCYTES % (AUTO) 6 % (0-12); NEUTROPHILS # (AUTO) 6.1 10^3/uL (1.8-7.8); NEUTROPHILS % (AUTO) 73 % (42-75); WHITE BLOOD COUNT 8.3 10^3/uL (4.3-11.0)
[2022-08-16 05:45] VITALS: BP 130/72
[2022-08-16] MEDS: KETOROLAC 30 MG/ML VIAL IV SCH (05:45)
[2022-08-16] MEDS: CATHETER FLUSH 10 ML SYR IV SCH (05:45)
[2022-08-16 06:37] LABS: PLATELET COUNT 131 10^3/uL (130-400)
--- NOTE | 2022-08-16 09:00 | Anesthesia-Regional Post-Op ---
Regional Patient Condition Mental Status: Alert, Oriented x3 Circulation: Same as Pre-Op Headache: Absent Sensation: Full Recovery Motor Block: Absent Post Op Complications Complications None Follow Up Care/Instructions Patient Instructions None needed. Anesthesia/Patient Condition Patient is doing well, no complaints, stable vital signs, no apparent adverse anesthesia problems. No complications reported per nursing. ELYSSA BENITO CRNA Aug 16, 2022 09:00
[2022-08-16 09:11] VITALS: BP 123/64
[2022-08-16] MEDS: DOCUSATE SODIUM 100 MG (COLACE) CAP PO SCH ×2 (09:28→20:00)
[2022-08-16] MEDS: HYDROcodone/APAP 5 MG/325 MG (LORTAB) TAB PO PRN ×2 (09:28→17:50)
--- NOTE | 2022-08-16 09:46 | Postpartum Progress Note ---
Note Note Day # 1 Subjective: Patient is without complaints. Ambulating, voiding. Tolerating a regular diet without nausea or vomiting. Normal lochia. Pain is well controlled with oral pain medications. Physical Exam: General - Alert and oriented, no apparent distress Abdomen - Soft, appropriately tender to palpation, non-distended, fundus firm at umbilicus; incision c/d/i Extremities - no edema, negative Spring's bilaterally Assessment: Post- day # 1, status post RLTCS Recovering well, hemodynamically stable Acute blood loss anemia Plan: Routine care. Encourage breast feeding. Encourage ambulation. Ferrous sulfate supplementation. Plan for discharge tomorrow Vitals - Labs Vital Signs - I&O Vital Signs Date Time Temp Pulse Resp B/P (MAP) Pulse Ox O2 Delivery O2 Flow Rate FiO2 08/16/22 09:11 36.6 78 18 123/64 (83) 98 Room Air 08/16/22 05:45 36.6 88 20 130/72 (91) 98 Room Air 08/16/22 01:00 36.3 83 20 132/68 (89) 98 Room Air 08/15/22 21:00 36.9 82 20 139/71 (93) 97 Room Air 08/15/22 16:10 37.1 80 20 139/75 (96) 98 Room Air 08/15/22 12:40 36.3 84 20 125/87 (100) 08/15/22 11:26 Room Air 08/15/22 11:26 36.2 18 131/82 (98) 08/15/22 11:15 36.2 18 137/85 (102) 99 Room Air 08/15/22 11:15 Room Air 08/15/22 11:00 Room Air 08/15/22 11:00 36.2 18 127/72 (90) 98 Room Air 08/15/22 10:45 Room Air 08/15/22 10:45 36.2 18 131/82 (98) 98 Room Air 08/15/22 10:26 36.1 18 118/74 (89) 99 Room Air 08/15/22 10:26 Room Air I & O 08/16/22 07:00 Intake Total 2100 ml Output Total 700 ml Balance 1400 ml Labs Laboratory Tests 08/16/22 05:08: White Blood Count 8.3, Red Blood Count 2.66L, Hemoglobin 8.9L, Hematocrit 27L, Mean Corpuscular Volume 100H, Mean Corpuscular Hemoglobin 34, Mean Corpuscular Hemoglobin Concent 33, Red Cell Distribution Width 15.2H, Platelet Count 131, Mean Platelet Volume 11.8, Immature Granulocyte % (Auto) 0, Neutrophils (%) (Auto) 73, Lymphocytes (%) (Auto) 19, Monocytes (%) (Auto) 6, Eosinophils (%) (Auto) 1, Basophils (%) (Auto) 1, Neutrophils # (Auto) 6.1, Lymphocytes # (Auto) 1.6, Monocytes # (Auto) 0.5, Eosinophils # (Auto) 0.1, Basophils # (Auto) 0.1, Immature Granulocyte # (Auto) 0.0, Percent Immature Platelet Fraction 6.6 JENELLE RENEE APRN Aug 16, 2022 09:46
[2022-08-16] MEDS: IBUPROFEN 600 MG (MOTRIN) TAB PO SCH ×2 (12:20→17:50)
[2022-08-16 13:00] VITALS: BP 121/79
[2022-08-16 16:50] VITALS: BP 135/75
[2022-08-16 20:00] VITALS: BP 136/80
[2022-08-17] MEDS: IBUPROFEN 600 MG (MOTRIN) TAB PO SCH ×2 (00:12→06:04)
[2022-08-17 00:25] VITALS: BP 114/62
[2022-08-17 04:00] VITALS: BP 121/72
--- NOTE | 2022-08-17 07:04 | Postpartum Progress Note ---
Note Note Day # 2 Subjective: Patient is without complaints. Ambulating, voiding. Tolerating a regular diet without nausea or vomiting. Normal lochia. Pain is well controlled with oral pain medications. Objective: Physical Exam: General - Alert and oriented, no apparent distress Abdomen - Soft, appropriately tender to palpation, non-distended, fundus firm at umbilicus Extremities - no edema, negative Spring's bilaterally Incision- c/d/i Assessment: POD 2 RLTCS Acute blood loss anemia Plan: Routine care. Encourage breast feeding. Encourage ambulation. Ferrous sulfate supplementation. Plan for discharge today Vitals - Labs Vital Signs - I&O Vital Signs Date Time Temp Pulse Resp B/P (MAP) Pulse Ox O2 Delivery O2 Flow Rate FiO2 08/17/22 04:00 37.1 74 18 121/72 (88) 98 Room Air 08/17/22 00:25 36.8 76 16 114/62 (79) 98 Room Air 08/16/22 20:00 36.3 81 16 136/80 (98) 98 Room Air 08/16/22 16:50 37.2 85 18 135/75 (95) 98 Room Air 08/16/22 13:00 36.7 89 18 121/79 (93) 98 Room Air 08/16/22 09:11 36.6 78 18 123/64 (83) 98 Room Air GLENN ACE DO Aug 17, 2022 07:04
[2022-08-17] MEDS: DOCUSATE SODIUM 100 MG (COLACE) CAP PO SCH (10:15)
== END 2022-08-17 14:40 | disposition home or self-care (01) | DRG 787 ==
LOC: LDRP 07:15
PROVIDERS: ADMIT Obstetrics & Gynecology; ATTEND Obstetrics & Gynecology
PROC: 10D00Z1 Extraction of Products of Conception, Low, Open Approach (ICD-10-PCS; principal; 2022-08-15 09:23)
DX: O34.211 Maternal care for low transverse scar from previous cesarean delivery (principal); D62 Acute posthemorrhagic anemia; Z3A.39 39 weeks gestation of pregnancy; Z37.0 Single live birth; O90.81 Anemia of the puerperium
CPT/HCPCS: 36415; 85025; 86850; 86900; 86901; 94664

== ENCOUNTER 2023-01-03 11:39 | Emergency (ER) | payer BC ==
[~2023-01-03] VITALS: Ht 168 cm; Wt 83.9 kg
--- NOTE | 2023-01-03 12:25 | ED Lower Extremity ---
General Chief Complaint: Lower Extremity Stated Complaint: LT FOOT PAIN Nursing Triage Note: ARRIVES WITH C/O LEFT HIP PAIN. NO RECENT INJURY, PATIENT HAS HAD CHRONIC LEFT HIP AND LEG PAIN SINCE A CHILD. NOW PAIN IS MUCH WORSE UNABLE TO BEAR WEIGHT Source: patient Exam Limitations: no limitations (SHIRA LEAL) History of Present Illness Date Seen by Provider: Jan 03, 2023 Time Seen by Provider: 12:22 Initial Comments Patient is a 37-year-old female who is a Icelandic-speaking with family at bedside presents ED with left hip pain. Daughter was used as home care specialist. Patient with a history of chronic left hip pain secondary to her father dropping her at her earlier age. She has seen orthopedic and they were recommending hip surgery. Patient states she has been having a sharp pain over the past week. No known injury at that time. She states today she was moving a tray when the tray fell and she started to fall forward. She was able to catch herself before hitting the ground felt a sharp pain in her left hip. Since then she is having difficulty flexing her hip and knee. Pain shoots into the upper hip and left proximal femur. She was seen at [facility] on Monday was given prednisone for this pain that was occurring prior. Exacerbating pain after the injury today. Denies of any distal numbness and tingling, bowel or urine incontinence, saddle paresthesia, lower back pain. (SHIRA LEAL) Allergies and Home Medications Allergies Coded Allergies: No Known Drug Allergies (Unverified , 08/09/22) Patient Home Medication List Home Medication List Reviewed: Yes (SHIRA LEAL) Docusate Sodium (Docusate Sodium) 100 Mg Capsule, 100 MG PO BID PRN for CO NSTIPATION-1ST LINE Prescribed by: GLENN ACE on 08/15/22 0933 Hydrocodone Bit/Acetaminophen (HYDROcodone/APAP 5 MG/325 MG TAB) 1 Tab Tab, 1-2 EA PO Q6HR PRN for PAIN-MODERATE (5-7) Prescribed by: GLENN ACE on 08/15/22 0934 Hydrocodone/Acetaminophen (Hydrocodone-Acetamin 5-325 mg) 5 Mg-325 Mg Tablet, 1 TAB PO Q4H PRN for PAIN-MODERATE (5-7) Prescribed by: RUTH ANN FRITZ on 01/03/23 1351 Ibuprofen (Ibu) 600 Mg Tablet, 600 MG PO Q6H Prescribed by: GLENN ACE on 08/15/22 0933 Ibuprofen (Ibuprofen) 600 Mg Tablet, 600 MG PO Q8H Prescribed by: RUTH ANN FRITZ on 01/03/23 1351 Review of Systems Constitutional: No chills, No diaphoresis, No malaise, No weakness EENTM: No ear pain, No blurred vision, No double vision Respiratory: No cough, No dyspnea on exertion Cardiovascular: No chest pain Gastrointestinal: No abdominal pain, No diarrhea, No nausea, No vomiting Genitourinary: No decreased output, No discharge Musculoskeletal: No back pain; joint pain, joint swelling Skin: No change in color, No change in hair/nails (SHIRA LEAL) All Other Systems Reviewed Negative Unless Noted: Yes (SHIRA LEAL) Past Rkfkafs-Onizgs-Fkxcjq Hx Patient Social History Tobacco Use?: No Use of E-Cig and/or Vaping dev: No Substance use?: No Alcohol Use?: No Pt feels they are or have been: No (SHIRA LEAL) Immunizations Up To Date Tetanus Booster (TDap): Unknown Influenza Vaccine Up-to-Date: Yes; Up-to-Date (SHIRA LEAL) Seasonal Allergies Seasonal Allergies: No (SHIRA LEAL) Past Medical History Surgery/Hospitalization HX: DENIES MEDICAL HX HX C SECTION Surgeries: Yes (HIP, C-SECTIONS 4) Section, Orthopedic Respiratory: No Currently Using CPAP: No Currently Using BIPAP: No Cardiac: Yes High Cholesterol Neurological: No Last Menstrual Period: Nov 01, 2020 Sexually Transmitted Disease: No HIV/AIDS: No Genitourinary: No Gastrointestinal: No Chronic Constipation Musculoskeletal: Yes (HIPS) Arthritis Endocrine: No HEENT: No Loss of Vision: Denies Hearing Impairment: Denies Cancer: No Psychosocial: No Integumentary: No Blood Disorders: No Adverse Reaction/Blood Tranf: No (SHIRA LEAL) Family Medical History Patient reports no known family medical history. No Pertinent Family Hx (SHIRA LEAL) Physical Exam Vital Signs Vital Signs - First Documented 01/03/23 11:50 Temp 36.0 Pulse 77 Resp 18 B/P (MAP) 129/96 (107) Pulse Ox 98 O2 Delivery Room Air (MARK BALLARD MD) Vital Signs Capillary Refill : (SHIRA LEAL) Height, Weight, BMI Height: 5'4.00" Weight: 189lbs. 0.0oz. 85.357390mv; 29.00 BMI Method: General Appearance: WD/WN, no apparent distress HEENT: PERRL/EOMI, normal ENT inspection, TMs normal, pharynx normal Neck: non-tender, full range of motion, supple, normal inspection Cardiovascular: regular rate, rhythm, no edema, no gallop, no JVD Respiratory: chest non-tender, lungs clear, normal breath sounds, no respiratory distress, no accessory muscle use Gastrointestinal: normal bowel sounds, non tender, soft, no organomegaly, no pulsatile mass Back: normal inspection, no CVA tenderness Hips: left hip limited range of motion, left hip pain, left hip swelling Legs: bilateral leg non-tender, bilateral leg normal inspection, bilateral leg normal range of motion Knees: bilateral knee non-tender, bilateral knee normal inspection, bilateral knee normal range of motion Ankles: bilateral ankle non-tender, bilateral ankle normal inspection, bilateral ankle normal range of motion Feet: bilateral foot non-tender, bilateral foot normal inspection, bilateral foot normal range of motion Neurologic/Tendon: normal sensation, normal motor functions Neurologic/Psychiatric: stitcher operator II-XII nml as tested, no motor/sensory deficits, alert, normal mood/affect (SHIRA LEAL) Progress/Results/Core Measures Results/Orders Medications Given in ED Current Medications Medications Dose Ordered Sig/Guille Route Start Time Stop Time Status Last Admin Dose Admin Acetaminophen/ Hydrocodone Bitart 1 ea ONCE ONCE PO 01/03/23 12:30 01/03/23 12:31 DC 01/03/23 12:34 1 EA Acetaminophen/ Hydrocodone Bitart 1 ea ONCE ONCE PO 01/03/23 14:00 01/03/23 14:00 DC 01/03/23 13:59 1 EA Ketorolac Tromethamine 30 mg ONCE ONCE IM 01/03/23 12:30 01/03/23 12:31 DC 01/03/23 12:35 30 MG Orphenadrine Citrate 60 mg ONCE ONCE IM 01/03/23 12:30 01/03/23 12:31 DC 01/03/23 12:34 60 MG (MARK BALLARD MD) Vital Signs/I&O 01/03/23 01/03/23 11:50 13:55 Temp 36.0 Pulse 77 80 Resp 18 18 B/P (MAP) 129/96 (107) 130/92 Pulse Ox 98 98 O2 Delivery Room Air Room Air (MARK BALLARD MD) Blood Pressure Mean: 107 Departure Communication (PCP) History of left hip injury as a kid secondary to a fall according to patient. She does ambulate with pain and discomfort chronically. She has had chronic pain but became worse today after she slipped but denies of any fall. She is able to stand and bear weight but is painful.. No shortening or rotation of the left leg. X-ray left hip shows hip dysplasia chronic without evidence of acute fracture. She was given pain medication with improvement of pain. She has seen orthopedic in the past who recommended surgery but she was currently at the time. She is not currently breast-feeding. She was given hydrocodone, Toradol and Norflex. Some improvement of pain. Discharged with pain medication, anti-inflammatories. She has orthopedic follow-up in 2 weeks. Recommend rest, stretching ice and heat. (SHIRA LEAL) Impression Primary Impression: Hip dysplasia Disposition: 01 HOME, SELF-CARE Condition: Stable Departure-Patient Inst. Decision time for Depature: 13:50 (SHIRA LEAL) Referrals: WILFRED SAPP MD (PCP/Family) Primary Care Physician GLENN RAMOS MD Patient Instructions: Hip Pain Scripts Ibuprofen (Ibuprofen) 600 Mg Tablet 600 MG PO Q8H for PAIN, #20 TAB 0 Refills Prov: SHIRA LEAL 01/03/23 Hydrocodone/Acetaminophen (Hydrocodone-Acetamin 5-325 mg) 5 Mg-325 Mg Tablet 1 TAB PO Q4H PRN for PAIN-MODERATE (5-7), #14 TAB Prov: SHIRA LEAL 01/03/23 Work/School Note: Work Release Form Date Seen in the Emergency Department: Jan 03, 2023 Return to Work: Jan 16, 2023 ATTENDING PHYSICIAN NOTE: I was physically present as attending physician in the emergency department during the care of this patient, but I was not directly involved in the decision making or delivery of care for this patient. (MARK BALLARD MD) SHIRA LEAL Jan 03, 2023 12:25 MARK BALLARD MD Jan 03, 2023 19:42
[2023-01-03] MEDS ORDERED: HYDROcodone/APAP 5 MG/325 MG (LORTAB) TAB PO ONE ×2 (12:30→14:00)
[2023-01-03] MEDS ORDERED: KETOROLAC 30 MG/ML VIAL IM ONE (12:30)
[2023-01-03] MEDS ORDERED: ORPHENADRINE 60 MG/2 ML (NORFLEX) AMP (ED ONLY) IM ONE (12:30)
--- NOTE | 2023-01-03 13:10 | Diagnostic Imaging Report ---
HIP, LEFT, 2 VIEWS INDICATION: Left hip pain COMPARISON: None available. TECHNIQUE: 2 views of the left hip. FINDINGS: There is developmental dysplasia left hip without very shallow acetabulum with a vertical orientation of the lateral wall. The femoral head has less than 50% coverage of the acetabulum. There are severe secondary osteoarthritic changes throughout the left hip. No acute osseous abnormality. IMPRESSION: 1. 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 Dictated by: Dictated on workstation # [id number]
[2023-01-03] MEDS ORDERED: IBUP-1773 PO (13:51)
[2023-01-03] MEDS ORDERED: ACHD5005 PO (13:51)
[2023-01-03 13:55] VITALS: BP 130/92
== END 2023-01-03 14:00 | disposition home or self-care (01) ==
LOC: EDUNIT# 11:39 → ER 11:41
DX: Q65.89 Other specified congenital deformities of hip (principal); Z98.890 Other specified postprocedural states; W18.40XA Slipping, tripping and stumbling without falling, unspecified, initial encounter
CPT/HCPCS: 73502

== ENCOUNTER → 2023-02-14 | Outpatient (CLI) | payer BC ==
[~2023-02-14] MED LIST changes: +IBUP-1773 PO
--- NOTE | 2023-02-14 13:34 | Diagnostic Imaging Report ---
INDICATION: History of developmental hip dysplasia. COMPARISON: 01/03/2023 FINDINGS: 2 radiographic views of the left hip were obtained and again show advanced osteoarthritic changes. This consists of severe joint space narrowing with sclerotic remodeling of the articular surfaces and prominent osteophyte formations. No acute fracture or dislocation is seen. No unexpected radio opaque foreign bodies are identified. IMPRESSION: 1. Redemonstration severe osteoarthritic changes of the left hip. Dictated by: Dictated on workstation # [id number]
== END ==
LOC: ORTHO 10:49
PROVIDERS: ATTEND Orthopaedic Surgery
DX: M16.12 Unilateral primary osteoarthritis, left hip (principal)
CPT/HCPCS: 73502; G0463; 99202

== ENCOUNTER → 2023-03-20 | Outpatient (CLI) | payer SELFPAY ==
[2023-03-20 15:14] LABS: BILIRUBIN,URINE NEGATIVE (NEGATIVE); CLARITY,URINE CLEAR; COLOR,URINE YELLOW; GLUCOSE, URINE (UA) TRACE (NEGATIVE); KETONES,URINE NEGATIVE (NEGATIVE); LEUKOCYTE ESTERASE ,URINE TRACE (NEGATIVE); NITRITE,URINE NEGATIVE (NEGATIVE); PH,URINE 6.5 (5-9); PROTEIN,URINE NEGATIVE (NEGATIVE)
[2023-03-20 15:20] LABS: HEMATOCRIT 38 % (35-52); HEMOGLOBIN 12.8 g/dL (11.5-16.0); MEAN CORPUSCULAR HEMOGLOBIN 32 pg (25-34); MEAN CORPUSCULAR HGB CONC 34 g/dL (32-36); MEAN CORPUSCULAR VOLUME 95 fL (80-99); MEAN PLATELET VOLUME 10.1 fL (9.0-12.2); PLATELET COUNT 240 10^3/uL (130-400)
[2023-03-20 15:21] LABS: AMORPHOUS SEDIMENT,UR MOD AMOR URATES /LPF; BACTERIA,URINE TRACE /HPF; RBC,URINE 0-2 /HPF; SQUAMOUS EPITHELIAL CELL,UR 25-50 /HPF; WBC,URINE 0-2 /HPF
[2023-03-20 15:30] LABS: ALBUMIN 4.4 GM/DL (3.2-4.5); POTASSIUM 3.7 MMOL/L (3.6-5.0)
[2023-03-20 15:31] LABS: CALCIUM 9.6 MG/DL (8.5-10.1)
[2023-03-20 15:33] LABS: TOTAL PROTEIN 8.1 GM/DL (6.4-8.2)
[2023-03-20 15:34] LABS: BILIRUBIN,TOTAL 0.5 MG/DL (0.1-1.0)
[2023-03-20 15:36] LABS: CREATININE SERUM 0.71 MG/DL (0.60-1.30)
== END ==
LOC: LAB 14:39
PROVIDERS: ATTEND Orthopaedic Surgery
DX: M25.552 Pain in left hip (principal)
CPT/HCPCS: 36415; 80053; 81000; 85027; 87081

== ENCOUNTER 2023-07-10 12:17 | Outpatient (RCR) | payer BC ==
[2023-06-19 13:00] VITALS: BP 108/60
[2023-06-19 13:22] LABS: BASOPHILS # (AUTO) 0.1 10^3/uL (0.0-0.1); BASOPHILS % (AUTO) 1 % (0-10); EOSINOPHILS # (AUTO) 0.2 10^3/uL (0.0-0.3); EOSINOPHILS % (AUTO) 3 % (0-10); HEMATOCRIT 29 % (35-52); HEMOGLOBIN 8.9 g/dL (11.5-16.0); LYMPHOCYTES % (AUTO) 36 % (12-44); MEAN CORPUSCULAR HEMOGLOBIN 30 pg (25-34); MEAN CORPUSCULAR HGB CONC 31 g/dL (32-36); MEAN CORPUSCULAR VOLUME 98 fL (80-99); MEAN PLATELET VOLUME 10.7 fL (9.0-12.2); MONOCYTES # (AUTO) 0.4 10^3/uL (0.0-1.0); MONOCYTES % (AUTO) 7 % (0-12); NEUTROPHILS # (AUTO) 2.9 10^3/uL (1.8-7.8); NEUTROPHILS % (AUTO) 53 % (42-75); PLATELET COUNT 245 10^3/uL (130-400); WHITE BLOOD COUNT 5.4 10^3/uL (4.3-11.0)
[2023-06-19 13:37] LABS: BILIRUBIN,TOTAL 0.4 MG/DL (0.1-1.0); CALCIUM 8.9 MG/DL (8.5-10.1); CREATININE SERUM 0.55 MG/DL (0.60-1.30); POTASSIUM 3.8 MMOL/L (3.6-5.0); TOTAL PROTEIN 6.9 GM/DL (6.4-8.2)
[2023-06-19 13:51] LABS: ERYTHROCYTE SEDIMENTATION RATE 24 MM/HR (0-20)
[2023-06-26 12:35] VITALS: BP 106/70
[2023-06-26 12:48] LABS: BASOPHILS # (AUTO) 0.1 10^3/uL (0.0-0.1); BASOPHILS % (AUTO) 1 % (0-10); EOSINOPHILS # (AUTO) 0.1 10^3/uL (0.0-0.3); EOSINOPHILS % (AUTO) 3 % (0-10); HEMATOCRIT 31 % (35-52); HEMOGLOBIN 9.6 g/dL (11.5-16.0); LYMPHOCYTES # (AUTO) 1.5 10^3/uL (1.0-4.0); LYMPHOCYTES % (AUTO) 32 % (12-44); MEAN CORPUSCULAR HEMOGLOBIN 30 pg (25-34); MEAN CORPUSCULAR HGB CONC 31 g/dL (32-36); MEAN CORPUSCULAR VOLUME 97 fL (80-99); MONOCYTES # (AUTO) 0.5 10^3/uL (0.0-1.0); MONOCYTES % (AUTO) 10 % (0-12); NEUTROPHILS # (AUTO) 2.5 10^3/uL (1.8-7.8); NEUTROPHILS % (AUTO) 54 % (42-75); PLATELET COUNT 184 10^3/uL (130-400); WHITE BLOOD COUNT 4.6 10^3/uL (4.3-11.0)
[2023-06-26 13:04] LABS: ALBUMIN 4.1 GM/DL (3.2-4.5); BILIRUBIN,TOTAL 0.6 MG/DL (0.1-1.0); CALCIUM 8.9 MG/DL (8.5-10.1); CREATININE SERUM 0.54 MG/DL (0.60-1.30); POTASSIUM 3.8 MMOL/L (3.6-5.0)
[2023-06-26 13:09] LABS: ERYTHROCYTE SEDIMENTATION RATE 33 MM/HR (0-20)
[2023-07-03 12:30] VITALS: BP 109/58
[2023-07-03 12:57] LABS: BASOPHILS % (AUTO) 1 % (0-10); EOSINOPHILS # (AUTO) 0.3 10^3/uL (0.0-0.3); EOSINOPHILS % (AUTO) 6 % (0-10); HEMATOCRIT 30 % (35-52); HEMOGLOBIN 9.5 g/dL (11.5-16.0); LYMPHOCYTES # (AUTO) 1.4 10^3/uL (1.0-4.0); LYMPHOCYTES % (AUTO) 31 % (12-44); MEAN CORPUSCULAR HEMOGLOBIN 29 pg (25-34); MEAN CORPUSCULAR HGB CONC 31 g/dL (32-36); MEAN CORPUSCULAR VOLUME 94 fL (80-99); MONOCYTES # (AUTO) 0.4 10^3/uL (0.0-1.0); MONOCYTES % (AUTO) 10 % (0-12); NEUTROPHILS # (AUTO) 2.4 10^3/uL (1.8-7.8); NEUTROPHILS % (AUTO) 53 % (42-75); PLATELET COUNT 149 10^3/uL (130-400); WHITE BLOOD COUNT 4.5 10^3/uL (4.3-11.0)
[2023-07-03 13:20] LABS: BILIRUBIN,TOTAL 0.7 MG/DL (0.1-1.0); CALCIUM 8.6 MG/DL (8.5-10.1); CREATININE SERUM 0.53 MG/DL (0.60-1.30); POTASSIUM 3.8 MMOL/L (3.6-5.0); TOTAL PROTEIN 7.3 GM/DL (6.4-8.2)
[2023-07-03 13:23] LABS: ERYTHROCYTE SEDIMENTATION RATE 66 MM/HR (0-20)
[2023-07-10 12:20] VITALS: BP 112/68
[2023-07-10 12:52] VITALS: BP 112/68
[2023-07-10 13:02] LABS: BASOPHILS # (AUTO) 0.1 10^3/uL (0.0-0.1); BASOPHILS % (AUTO) 1 % (0-10); EOSINOPHILS # (AUTO) 0.2 10^3/uL (0.0-0.3); EOSINOPHILS % (AUTO) 5 % (0-10); HEMATOCRIT 30 % (35-52); HEMOGLOBIN 9.3 g/dL (11.5-16.0); LYMPHOCYTES # (AUTO) 1.5 10^3/uL (1.0-4.0); LYMPHOCYTES % (AUTO) 36 % (12-44); MEAN CORPUSCULAR HEMOGLOBIN 29 pg (25-34); MEAN CORPUSCULAR HGB CONC 32 g/dL (32-36); MEAN CORPUSCULAR VOLUME 92 fL (80-99); MEAN PLATELET VOLUME 10.3 fL (9.0-12.2); MONOCYTES # (AUTO) 0.4 10^3/uL (0.0-1.0); MONOCYTES % (AUTO) 10 % (0-12); NEUTROPHILS % (AUTO) 48 % (42-75); PLATELET COUNT 235 10^3/uL (130-400); WHITE BLOOD COUNT 4.1 10^3/uL (4.3-11.0)
[2023-07-10 13:22] LABS: ALBUMIN 3.9 GM/DL (3.2-4.5); BILIRUBIN,TOTAL 0.4 MG/DL (0.1-1.0); CALCIUM 8.9 MG/DL (8.5-10.1); CREATININE SERUM 0.54 MG/DL (0.60-1.30); POTASSIUM 3.9 MMOL/L (3.6-5.0); TOTAL PROTEIN 6.8 GM/DL (6.4-8.2)
[2023-07-10 13:23] LABS: ERYTHROCYTE SEDIMENTATION RATE 40 MM/HR (0-20)
== END 2023-07-13 | disposition home or self-care (01) ==
LOC: SDC 12:17
PROVIDERS: ATTEND Orthopaedic Surgery
DX: T84.52XD Infection and inflammatory reaction due to internal left hip prosthesis, subsequent encounter (principal)
CPT/HCPCS: 36415; 80053; 85025; 85652; 86141; 99211

== ENCOUNTER 2023-10-18 18:46 | Emergency (ER) | payer SELFPAY ==
[~2023-10-18] VITALS: Ht 167 cm; Wt 87.5 kg
[2023-10-18] MEDS ORDERED: ASPIRIN 81 MG CHEWABLE TABLET PO ONE (19:30)
--- NOTE | 2023-10-18 19:40 | ED Chest Pain ---
General Chief Complaint: Chest Pain Stated Complaint: LOW HEART RATE Source: patient Exam Limitations: no limitations, language barrier (SHIRA LEAL) History of Present Illness Date Seen by Provider: Oct 18, 2023 Time Seen by Provider: 19:38 Initial Comments Patient is a 38-year-old female who presents ED with chest pain. Chest pain started last night. Pain is substernal. She feels the pain worse when she takes a deep breath or when she ambulates. She states she did have improvement last night. She woke up with pain this morning, and the pain has been constant. This Pressure has migrated to the left arm. She feels like there is a bubble in her chest especially when she breathes. Associate shortness of breath but denies any cough or flulike symptoms. No recent travels or surgeries in the past 3 months. She did have a left hip surgery in May at . She is not on any anticoagulant. She denies history of coronary artery disease, hypertension, smoking. Family cardiac history history of hyper lipidemia. She was seen at [facility] [place] care and sent to the ED for further evaluation. She denies of any thyroid disease. She denies headache, dizziness, visual changes, dysuria, he maturia. Last menstrual cycle around 1 month ago. Improvement of pain with aspirin on arrival. She denies abdominal pain, nausea, vomiting, diarrhea. (SHIRA LEAL) Allergies and Home Medications Allergies Coded Allergies: No Known Drug Allergies (Unverified , 08/09/22) Patient Home Medication List Home Medication List Reviewed: Yes (SHIRA LEAL) Docusate Sodium (Docusate Sodium) 100 Mg Capsule, 100 MG PO BID PRN for CONSTIPATION-1ST LINE Prescribed by: GLENN ACE on 08/15/22 0933 Hydrocodone Bit/Acetaminophen (HYDROcodone/APAP 5 MG/325 MG TAB) 1 Tab Tab, 1-2 EA PO Q6HR PRN for PAIN-MODERATE (5-7) Prescribed by: GLENN ACE on 08/15/22 0934 Hydrocodone/Acetaminophen (Hydrocodone-Acetamin 5-325 mg) 5 Mg-325 Mg Tablet, 1 TAB PO Q4H PRN for PAIN-MODERATE (5-7) Prescribed by: RUTH ANN FRITZ on 01/03/23 1351 Ibuprofen (Ibu) 600 Mg Tablet, 600 MG PO Q6H Prescribed by: GLENN ACE on 08/15/22 0933 Ibuprofen (Ibuprofen) 600 Mg Tablet, 600 MG PO Q8H Prescribed by: RUTH ANN FRITZ on 01/03/23 1351 Review of Systems Review of Systems Constitutional: No chills, No diaphoresis, No malaise, No weakness EENTM: No Blurred Vision, No Double Vision, No Eye Pain Respiratory: Denies Cough; Shortness of Air Cardiovascular: Chest Pain Gastrointestinal: Denies Abdominal Pain, Denies Diarrhea, Denies Nausea, Denies Vomiting Genitourinary: Denies Burning, Denies Discharge, Denies Frequency Musculoskeletal: No back pain, No joint pain Skin: No change in color, No change in hair/nails Psychiatric/Neurological: Denies Anxiety (SHIRA LEAL) All Other Systems Reviewed Negative Unless Noted: Yes (SHIRA LEAL) Past Juhkawg-Nwdjxl-Utrdxa Hx Immunizations Up To Date Tetanus Booster (TDap): Unknown (SHIRA LEAL) Seasonal Allergies Seasonal Allergies: No (SHIRA LEAL) Past Medical History Surgery/Hospitalization HX: DENIES MEDICAL HX HX C SECTION Surgeries: Yes (HIP, C-SECTIONS 4) Section, Orthopedic Respiratory: No Currently Using CPAP: No Currently Using BIPAP: No Cardiac: Yes High Cholesterol Neurological: No Sexually Transmitted Disease: No HIV/AIDS: No Genitourinary: No Gastrointestinal: No Chronic Constipation Musculoskeletal: Yes (HIPS) Arthritis Endocrine: No HEENT: No Loss of Vision: Denies Hearing Impairment: Denies Cancer: No Psychosocial: No Integumentary: No Blood Disorders: No Adverse Reaction/Blood Tranf: No (SHIRA LEAL) Family Medical History Patient reports no known family medical history. No Pertinent Family Hx (SHIRA LEAL) Physical Exam Vital Signs Vital Signs - First Documented 10/18/23 10/18/23 19:05 21:38 Temp 36.8 Pulse 72 Resp 19 B/P (MAP) 141/90 (107) Pulse Ox 100 O2 Delivery Room Air (NIURKA,KASHMIR K DO) Vital Signs Capillary Refill : (SHIRA LEAL) Height, Weight, BMI Height: 5'4.00" Weight: 189lbs. 0.0oz. 85.162479wa; 29.00 BMI Method: General Appearance: No Apparent Distress, WD/WN HEENT: PERRL/EOMI, TMs Normal, Normal ENT Inspection, Pharynx Normal Neck: Full Range of Motion, Normal Inspection, Non Tender, Supple Respiratory: Chest Non Tender, Lungs Clear, Normal Breath Sounds, No Accessory Muscle Use, No Respiratory Distress Cardiovascular: Regular Rate, Rhythm, No Edema, No Gallop, No JVD, No Murmur Gastrointestinal: Normal Bowel Sounds, No Organomegaly, No Pulsatile Mass, Non Tender Extremity: Normal Capillary Refill, Normal Inspection, Normal Range of Motion, Non Tender Neurologic/Psychiatric: Alert, Oriented x3, No Motor/Sensory Deficits, Normal Mood/Affect Skin: Normal Color, Warm/Dry (SHIRA LEAL) Progress/Results/Core Measures Results/Orders Lab Results Laboratory Tests Test 10/18/23 19:34 Range/Units White Blood Count 9.0 4.3-11.0 10^3/uL Red Blood Count 3.75 L 3.80-5.11 10^6/uL Hemoglobin 11.3 L 11.5-16.0 g/dL Hematocrit 34 L 35-52 % Mean Corpuscular Volume 92 80-99 fL Mean Corpuscular Hemoglobin 30 25-34 pg Mean Corpuscular Hemoglobin Concent 33 32-36 g/dL Red Cell Distribution Width 16.4 H 10.0-14.5 % Platelet Count 229 130-400 10^3/uL Mean Platelet Volume 10.9 9.0-12.2 fL Immature Granulocyte % (Auto) 0 % Neutrophils (%) (Auto) 64 42-75 % Lymphocytes (%) (Auto) 28 12-44 % Monocytes (%) (Auto) 6 0-12 % Eosinophils (%) (Auto) 2 0-10 % Basophils (%) (Auto) 1 0-10 % Neutrophils # (Auto) 5.8 1.8-7.8 10^3/uL Lymphocytes # (Auto) 2.5 1.0-4.0 10^3/uL Monocytes # (Auto) 0.5 0.0-1.0 10^3/uL Eosinophils # (Auto) 0.1 0.0-0.3 10^3/uL Basophils # (Auto) 0.1 0.0-0.1 10^3/uL Immature Granulocyte # (Auto) 0.0 0.0-0.1 10^3/uL Prothrombin Time 13.4 12.2-14.7 SEC INR Comment 1.0 0.8-1.4 Activated Partial Thromboplast Time 31 24-35 SEC D-Dimer 0.68 H 0.00-0.49 UG/ML Sodium Level 133 L 135-145 MMOL/L Potassium Level 4.4 3.6-5.0 MMOL/L Chloride Level 104 98-107 MMOL/L Carbon Dioxide Level 19 L 21-32 MMOL/L Anion Gap 10 5-14 MMOL/L Blood Urea Nitrogen 10 7-18 MG/DL Creatinine 0.65 0.60-1.30 MG/DL Estimat Glomerular Filtration Rate 114 BUN/Creatinine Ratio 15 Glucose Level 113 H 70-105 MG/DL Calcium Level 9.6 8.5-10.1 MG/DL Corrected Calcium 9.5 8.5-10.1 MG/DL Magnesium Level 2.2 1.6-2.4 MG/DL Total Bilirubin 0.4 0.1-1.0 MG/DL Aspartate Amino Transf (AST/SGOT) 53 H 5-34 U/L Alanine Aminotransferase (ALT/SGPT) 66 H 0-55 U/L Alkaline Phosphatase 77 40-136 U/L Myoglobin 16.3 10.0-92.0 NG/ML Troponin I < 0.028 <0.028 NG/ML B-Type Natriuretic Peptide 22.3 <100.0 PG/ML Total Protein 8.0 6.4-8.2 GM/DL Albumin 4.1 3.2-4.5 GM/DL Lipase 15 8-78 U/L Human Chorionic Gonadotropin, Quant 10 H <5 MIU/ML Serum Test, Qualitative POSITIVE NEGATIVE (KASHMIR BAH DO) My Orders Orders - KASHMIR BAH DO Ekg Tracing (10/18/23 19:13) (KASHMIR BAH DO) Medications Given in ED Current Medications Medications Dose Ordered Sig/Guille Route Start Time Stop Time Status Last Admin Dose Admin Iohexol 100 ml ONCE ONCE IV 10/18/23 21:00 10/18/23 21:01 DC 10/18/23 20:56 85 ML Sodium Chloride 100 ml ONCE ONCE IV 10/18/23 21:00 10/18/23 21:01 DC 10/18/23 20:56 70 ML (KASHMIR BAH DO) Vital Signs/I&O 10/18/23 10/18/23 19:05 21:38 Temp 36.8 Pulse 72 88 Resp 19 20 B/P (MAP) 141/90 (107) 132/87 Pulse Ox 100 98 O2 Delivery Room Air 10/18/23 23:59 Intake Total 1000 ml Balance 1000 ml (KASHMIR BAH DO) Departure Communication (PCP) Reviewed previous ER visits, H&P, lab testing. Differential diagnosis pericarditis, PE, pneumonia, ACS. Patient denies any recent travels or surgerie s within the past 3 months. She did have her left hip replaced in May at . No known cardiac history. History of hyperlipidemia and family cardiac history. Denies history of hypertension, diabetes, smoking. Patient was not hypoxic or tachycardic. Afebrile. EKG cardiac workup was initiated. EKG showed sinus rhythm with multiple ventral ventricular premature complexes. No ST elevation or depression. She did receive a full aspirin. CBC, CMP was grossly unremarkable. Sodium 133, blood sugar 113. She was not hypertensive. Troponin negative. BNP negative. Had a slight elevated D-dimer 0.63. Chest x- ray was obtained which showed concern for atelectasis versus infiltrate. She has no cough or flulike symptoms. Not concern for pneumonia. CT angio of the chest was ordered. Did obtain a blood hCG. Her last menstrual cycle was October 02. She states she has been 5 times and with 5 live births at home. Her hCG did come back positive right before CT angio of the chest. She has no lower extremity swelling bruising or pain. Discuss patient with Dr. Sapp hospitalist and patient's primary care physician. Discussed admission for observation ultrasound of her legs and VQ scan since we do not have this access to these resources at night. Recommended dose of Lovenox. Before getting those results, she did already receive her CT angio of the chest which was negative for pneumonia or PE, pleural effusion. Low potential radiation exposure. Discussed these results with Dr. Sapp. She will follow-up with her in the office for further evaluation of the . Her beta quant did eventually return back at 10. She would be about a week . Further evaluation with her primary care physician. Cardiac workup was grossly unremarkable. Chest pain improved with the aspirin. at this time I do think it is reasonable for outpatient cardiac workup. Provided this in discharge instruction. She does have a heart score of 2. low cardiac risk factors. Does not necessarily require admission but needs further evaluation. (SHIRA LEAL) Impression Primary Impression: Chest pain during Disposition: ADMITTED INPATIENT Condition: Stable Admissions Decision to Admit Reason: Admit from ER (General) Decision to Admit/Date: Oct 18, 2023 Time/Decision to Admit Time: 21:11 (SHIRA LEAL) Departure-Patient Inst. Decision time for Depature: 21:29 (SHIRA LEAL) Referrals: WILFRED SAPP MD (PCP/Family) Primary Care Physician VU KUNZ MD FACP FACC CCDS Patient Instructions: Chest Pain, Adult ED Add. Discharge Instructions: Need to follow-up with your primary care physician for further evaluation. If any worsening chest pain to return back to ED. All discharge instructions reviewed with patient and/or family. Voiced understanding. ATTENDING PHYSICIAN NOTE: I WAS PHYSICALLY PRESENT IN THE ER, BUT I WAS NOT INVOLVED IN ANY DECISION MAKING OR ANY CARE OF THIS PATIENT, AND I AM NOT COLLABORATING PHYSICIAN. (KASHMIR BAH DO) SHIRA LEAL Oct 18, 2023 19:40 KASHMIR BAH DO Oct 19, 2023 02:23
[2023-10-18 19:43] LABS: BASOPHILS # (AUTO) 0.1 10^3/uL (0.0-0.1); BASOPHILS % (AUTO) 1 % (0-10); EOSINOPHILS # (AUTO) 0.1 10^3/uL (0.0-0.3); EOSINOPHILS % (AUTO) 2 % (0-10); HEMATOCRIT 34 % (35-52); HEMOGLOBIN 11.3 g/dL (11.5-16.0); LYMPHOCYTES # (AUTO) 2.5 10^3/uL (1.0-4.0); LYMPHOCYTES % (AUTO) 28 % (12-44); MEAN CORPUSCULAR HEMOGLOBIN 30 pg (25-34); MEAN CORPUSCULAR HGB CONC 33 g/dL (32-36); MEAN CORPUSCULAR VOLUME 92 fL (80-99); MEAN PLATELET VOLUME 10.9 fL (9.0-12.2); MONOCYTES # (AUTO) 0.5 10^3/uL (0.0-1.0); MONOCYTES % (AUTO) 6 % (0-12); NEUTROPHILS # (AUTO) 5.8 10^3/uL (1.8-7.8); NEUTROPHILS % (AUTO) 64 % (42-75); PLATELET COUNT 229 10^3/uL (130-400)
--- NOTE | 2023-10-18 19:46 | Diagnostic Imaging Report ---
INDICATION: Chest pain. EXAMINATION: Single view chest, 10/18/2023. COMPARISON: 04/29/2020. FINDINGS: Vague infiltrate suspected at the bases. Heart normal. Pulmonary vasculature unremarkable. No pneumothorax. No effusion. IMPRESSION: Suspected vague infiltrate or atelectasis at the lung bases. Dictated by: Dictated on workstation # [id number]
[2023-10-18 19:58] LABS: PROTHROMBIN TIME PATIENT 13.4 SEC (12.2-14.7)
[2023-10-18 20:02] LABS: FIBRIN DEGRADATION PRODUCTS 0.68 UG/ML (0.00-0.49)
[2023-10-18 20:03] LABS: ALBUMIN 4.1 GM/DL (3.2-4.5); CHLORIDE 104 MMOL/L (98-107); POTASSIUM 4.4 MMOL/L (3.6-5.0); SODIUM 133 MMOL/L (135-145)
[2023-10-18 20:04] LABS: CALCIUM 9.6 MG/DL (8.5-10.1)
[2023-10-18 20:05] LABS: GLUCOSE 113 MG/DL (70-105)
[2023-10-18 20:07] LABS: BILIRUBIN,TOTAL 0.4 MG/DL (0.1-1.0); CARBON DIOXIDE 19 MMOL/L (21-32)
[2023-10-18 20:09] LABS: ALKALINE PHOSPHATASE 77 U/L (40-136); CREATININE SERUM 0.65 MG/DL (0.60-1.30); GFR ESTIMATED 114
[2023-10-18] MEDS ORDERED: NS IV 1000 ML 1,000 ML IV STA (20:09)
[2023-10-18 20:10] LABS: BUN/CREATININE RATIO 15
[2023-10-18 20:12] LABS: ALANINE AMINOTRANSFERASE 66 U/L (0-55); MAGNESIUM 2.2 MG/DL (1.6-2.4)
[2023-10-18 20:13] LABS: LIPASE 15 U/L (8-78)
[2023-10-18] MEDS ORDERED: NS 100 ML (IVPB) BAG IV ONE (21:00)
[2023-10-18] MEDS ORDERED: IOHEXOL 350 MG/ML 100 ML (OMNIPAQUE 350) VIAL IV ONE (21:00)
--- NOTE | 2023-10-18 21:15 | Diagnostic Imaging Report ---
INDICATION: Chest pain, EXAMINATION: CTA chest, 10/18/2023. FINDINGS: There are no central or proximal segmental pulmonary embolus. No adenopathy. No effusion. Upper abdomen demonstrates marked hepatic steatosis. Scattered areas of atelectasis noted throughout the lungs. There is no acute osseous abnormality. IMPRESSION: Scattered atelectasis in the lungs with no acute cardiopulmonary process. No central or proximal segmental pulmonary embolus with peripheral vessels poorly evaluated due to poor opacification. Other incidental findings as above. Dictated by: Dictated on workstation # [id number]
[2023-10-18] MEDS ORDERED: ENOXAPARIN 80 MG/0.8 ML SYRINGE SC ONE (21:30)
[2023-10-18 21:38] VITALS: BP 132/87
== END 2023-10-18 21:38 | disposition home or self-care (01) ==
LOC: EDUNIT# 18:46 → ER 18:52
DX: O99.519 Diseases of the respiratory system complicating pregnancy, unspecified trimester (principal); R07.2 Precordial pain; Z3A.00 Weeks of gestation of pregnancy not specified
CPT/HCPCS: 36415; 71045; 71275; 80053; 83690; 83735; 83874; 83880; 84484; 84702; 84703; 85025; 85379; 85610; 85730; 93005; 93041